=== PATIENT | female | born 1985 ===

== ENCOUNTER 2016-08-01 19:06 | Emergency (ER) | payer MEDICAID ==
--- NOTE | 2016-08-01 19:52 | EDM.PDOC ---
ED HPI GENERAL MEDICAL PROBLEM - General Chief Complaint: Allergic Reaction Stated Complaint: POSSIBLE ALLERGIC REACTION Time Seen by Provider: 08/01/16 19:52 - History of Present Illness INITIAL COMMENTS - FREE TEXT/NARRATIVE: HISTORY AND PHYSICAL: History of present illness: Patient 30-year-old female presents with concern of possible drug reaction she' s recently started on Celexa she states this is caused some nausea and mild headache and seems temporally related to medication she denies any other concern. Review of systems: As per history of present illness and below otherwise all systems reviewed and negative. Past medical history: As per history of present illness and as reviewed below otherwise noncontributory. Surgical history: As per history of present illness and as reviewed below otherwise noncontributory. Social history: No reported history of drug or alcohol abuse. Family history: As per history of present illness and as reviewed below otherwise noncontributory. Physical exam: HEENT: Atraumatic, normocephalic, pupils reactive, negative for conjunctival pallor or scleral icterus, mucous membranes moist, throat clear, neck supple, nontender, trachea midline. Lungs: Clear to auscultation, breath sounds equal bilaterally, chest nontender. Heart: S1S2, regular, negative for clicks, rubs, or JVD. Abdomen: Soft, nondistended, nontender. Negative for masses or hepatosplenomegaly. Negative for costovertebral tenderness. Pelvis: Stable nontender. Genitourinary: Deferred. Rectal: Deferred. Extremities: Atraumatic, negative for cords or calf pain. Neurovascular unremarkable. Neuro: Awake, alert, oriented. Cranial nerves II through XII unremarkable. Cerebellum unremarkable. Motor and sensory unremarkable throughout. Exam nonfocal. Diagnostics: None Therapeutics: None Impression: #1 possible drug reaction Definitive disposition and diagnosis as appropriate pending reevaluation and review of above. 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 (See Below) Other OB/BYN History: high risk , hx of delivery with first child, pt taking progesterone injections Neurological History: Reports: None Psychiatric History: Reports: Depression Endocrine/Metabolic History: Reports: None Hematologic History: Reports: None Oncologic (Cancer) History: Reports: None Dermatologic History: Reports: None - Infectious Disease History Infectious Disease History: Reports: None Social & Family History - Family History Family Medical History: Noncontributory - Tobacco Use Smoking Status *Q: Never Smoker - Recreational Drug Use Recreational Drug Use: Yes Recreational Drug Type: Reports: Marijuana/Hashish, Methamphetamine ED ROS ALLERGIC REACTION - Review of Systems Review Of Systems: ROS reveals no pertinent complaints other than HPI. ED EXAM GENERAL NO PERIP PULSE - Physical Exam Exam: See Below (See dictation) Course - Vital Signs Last Recorded V/S: Last Vital Signs Temp 37.1 C 08/01/16 19:35 Pulse 91 08/01/16 19:35 Resp 18 08/01/16 19:35 BP 118/70 08/01/16 19:35 Pulse Ox 96 08/01/16 19:35 Departure - Departure Time of Disposition: 19:51 Disposition: Home, Self-Care 01 Condition: Good Clinical Impression: Drug reaction, Encounter for medical screening examination - Discharge Information Additional Instructions: The following information is given to patients seen in the emergency department who are being discharged to home. This information is to outline your options for follow-up care. We provide all patients seen in our emergency department with a follow-up referral. The need for follow-up, as well as the timing and circumstances, are variable depending upon the specifics of your emergency department visit. If you don't have a primary care physician on staff, we will provide you with a referral. We always advise you to contact your personal physician following an emergency department visit to inform them of the circumstance of the visit and for follow-up with them and/or the need for any referrals to a consulting specialist. The emergency department will also refer you to a specialist when appropriate. This referral assures that you have the opportunity for followup care with a specialist. All of these measure are taken in an effort to provide you with optimal care, which includes your followup. Under all circumstances we always encourage you to contact your private physician who remains a resource for coordinating your care. When calling for followup care, please make the office aware that this follow-up is from your recent emergency room visit. If for any reason you are refused follow-up, please contact the [facility] emergency department at and asked to speak to the emergency department charge nurse. Follow primary medical doctor 1-2 days stop Celexa as discussed to return as needed as discussed
[2016-08-02 03:01] VITALS: BP 125/71
== END 2016-08-01 20:31 | disposition home or self-care (01) ==
LOC: MW.ED 19:06
DX: R11.0 Nausea (principal); R51 Headache; T43.225A Adverse effect of selective serotonin reuptake inhibitors, initial encounter; Z88.8 Allergy status to other drugs, medicaments and biological substances
CPT/HCPCS: 99282; 99283

== ENCOUNTER 2016-12-02 19:49 | Inpatient (IN) | payer MEDICAID, OTHER ==
[2016-12-02] MEDS ORDERED: Sodium Chloride 0.9% 10 ML Syringe FLUSH PRN (19:58)
[2016-12-02] MEDS ORDERED: Nalbuphine 10 MG/1 ML Vial IVPUSH PRN (19:58)
[2016-12-02] MEDS ORDERED: Water For Irrigation,Sterile 1,000 ML Container IRR PRN (19:58)
[2016-12-02] MEDS ORDERED: Terbutaline 1 MG/ML SDV SUBCUT PRN (19:58)
[2016-12-02] MEDS ORDERED: Misoprostol 200 MCG Tab PO PRN (19:58)
[2016-12-02] MEDS ORDERED: Sodium Chloride 0.9% 2.5 ML Syringe FLUSH PRN (19:58)
[2016-12-02] MEDS ORDERED: Misoprostol 25 MCG (1/4 of 100 MCG) Tab VAG PRN (19:58)
[2016-12-02] MEDS ORDERED: Misoprostol 25 MCG (1/4 of 100 MCG) Tab PO PRN (19:58)
[2016-12-02] MEDS ORDERED: Carboprost Tromethamine 250 MCG/1 ML Amp IM PRN (19:58)
[2016-12-02] MEDS ORDERED: Methylergonovine 0.2 MG/1 ML Amp IM PRN (19:58)
[2016-12-02] MEDS ORDERED: Lidocaine 1% 50 ML MDV INJECT PRN (19:58)
[2016-12-02] MEDS ORDERED: Misoprostol 25 MCG (1/4 of 100 MCG) Tab PO SCH (20:00)
[2016-12-02] MEDS ORDERED: Oxytocin/0.9 % Sodium Chloride 30 UNIT/500 ML BAG IV SCH ×2 (20:00)
[2016-12-02] MEDS ORDERED: Misoprostol 25 MCG (1/4 of 100 MCG) Tab VAG SCH (20:00)
[2016-12-02] MEDS: Lactated Ringers 1,000 ML IV SCH (20:50)
[2016-12-03] MEDS: Butorphanol 1 MG/ML SDV IVPUSH PRN ×2 (01:15→04:11)
[2016-12-03] MEDS: Lactated Ringers 1,000 ML IV SCH ×2 (04:41→05:47)
[2016-12-03] MEDS ORDERED: fentaNYL 100 MCG/2 ML SDV ONE (05:49)
[2016-12-03] MEDS ORDERED: ePHEDrine 50 MG/ML SDV ONE (05:49)
[2016-12-03] MEDS ORDERED: Ropivacaine HCl/PF 100 ML ONE (05:50)
[2016-12-03] MEDS ORDERED: Ropivacaine 0.2% 2 MG/ML 20 ML SDV ONE (05:50)
--- NOTE | 2016-12-03 05:55 | PCM.LDHP ---
L&D History of Present Illness - General Date of Service: 12/03/16 Admit Problem/Dx: Patient Status Order with Admit Dx/Problem 12/02/16 19:58 Patient Status [ADT] Routine Admission Diagnosis/Problem Admission Diagnosis/Problem - planned 12/03/16 05:49 31 yo 40 2/7wks EDC 12/01/2016 A+, RI, GBS neg. IOL for post dates Source of Information: Patient History Limitations: Reports: No Limitations - History of Present Illness Pain Score: 6 Improves with: Reports: None Worsens with: Reports: None Associated Symptoms: Reports: N - Related Data Allergies/Adverse Reactions: Allergies Allergy/AdvReac Type Severity Reaction Status Date / Time citalopram [From Celexa] Allergy Nausea Verified 12/03/16 02:29 hydroxyzine [From Vistaril] Allergy Other Verified 12/03/16 02:28 Home Medications: Home Meds Pnv No.95/Ferrous Fum/Folic AC [ Multivitamin Tablet] 1 each PO DAILY [History] Progesterone Injection 250 mg 08/01/16 [History] buPROPion HCl [Wellbutrin SR] 12/03/16 [History] Past Medical History HEENT History: Reports: Impaired Vision, Other (See Below) Other HEENT History: wears glasses Cardiovascular History: Reports: None Respiratory History: Reports: None Gastrointestinal History: Reports: None Genitourinary History: Reports: None 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: , 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 (See Below) Other OB/BYN History: high risk , hx of delivery with first child, pt taking progesterone injections Neurological History: Reports: None Psychiatric History: Reports: Depression Endocrine/Metabolic History: Reports: None Hematologic History: Reports: None Oncologic (Cancer) History: Reports: None Dermatologic History: Reports: None - Infectious Disease History Infectious Disease History: Reports: None - Past Surgical History HEENT Surgical History: Reports: None Social & Family History - Family History Family Medical History: Noncontributory HEENT: Reports: Cataract, Glaucoma Cardiac: Reports: MT Respiratory: Reports: Asthma GI: Reports: Other (See Below) Other GI Family History: Crohn's disease; ulcers; cholecystitis OBGYN: Reports: Musculoskeletal: Reports: Arthritis Neurological: Reports: CVA Psychiatric: Reports: Anxiety, Depression Endocrine/Metabolic: Reports: Diabetes, Type I, Other (See Below) Other Endocrine/Metabolic Family History: thyroid disease Oncologic: Reports: Breast, Cervix - Tobacco Use Smoking Status *Q: Never Smoker - Recreational Drug Use Recreational Drug Use: Yes Drug Use in Last 12 Months: Yes Recreational Drug Type: Reports: Marijuana/Hashish, Methamphetamine Recreational Drug Use Frequency: Not Used In Over 6 Months Recreational Drug Last Use: 04/2016 H&P Review of Systems - Review of Systems: Review Of Systems: See Below General: Reports: No Symptoms HEENT: Reports: No Symptoms Pulmonary: Reports: No Symptoms Cardiovascular: Reports: No Symptoms Gastrointestinal: Reports: No Symptoms Genitourinary: Reports: No Symptoms Musculoskeletal: Reports: No Symptoms Skin: Reports: No Symptoms Psychiatric: Reports: No Symptoms Neurological: Reports: No Symptoms Hematologic/Lymphatic: Reports: No Symptoms Immunologic: Reports: No Symptoms L&D Exam - Exam Exam: See Below - Vital Signs Weight: 75.296 kg - Exam General: Alert, Oriented, Cooperative, Mild Distress HEENT: Hearing Intact Lungs: Clear to Auscultation, Normal Respiratory Effort Cardiovascular: Regular Rate, Regular Rhythm GI/Abdominal Exam: Soft, Non-Tender, No Organomegaly, No Distention (gravid) Rectal Exam: Deferred Genitourinary: Normal external exam, Cervical dilitation, Cervical fluid Back Exam: Full Range of Motion Extremities: Normal Range of Motion, Non-Tender, No Pedal Edema, Normal Capillary Refill Skin: Warm, Dry, Intact Neurological: Cranial Nerves Intact, Normal Speech, Normal Tone Psychiatric: Alert, Normal Affect, Normal Mood - Patient Data Lab Results Last 24 hrs: Laboratory Results - last 24 hr 12/02/16 12/02/16 Range/Units 20:15 20:15 WBC 13.90 H (4.0-11.0) K/uL RBC 3.49 L (4.30-5.90) M/uL Hgb 12.2 (12.0-16.0) g/dL Hct 33.5 L (36.0-46.0) % MCV 96.0 (80.0-98.0) fL MCH 35.0 H (27.0-32.0) pg MCHC 36.4 (31.0-37.0) g/dL RDW Std Deviation 47.7 (28.0-62.0) fl RDW Coeff of Ricardo 14 (11.0-15.0) % Plt Count 204 (150-400) K/uL MPV 10.20 (7.40-12.00) fL Nucleated RBC % 0.0 /100WBC Nucleated RBCs # 0 K/uL Blood Type A POSITIVE Antibody Screen NEGATIVE Result Diagrams: 12/02/16 20:15 - Problem List (1) Supervision of normal IUP (intrauterine ) in multigravida SNOMED Code(s): 432280952, 462196648 ICD Code: Z34.80 - ENCOUNTER FOR SUPRVSN OF NORMAL , UNSP TRIMESTER Status: Acute Priority: High Current Visit: Yes Qualifiers: Trimester: third trimester Qualified Code(s): Z34.83 - Encounter for supervision of other normal , third trimester Problem List Initiated/Reviewed/Updated: Yes Orders Last 24hrs: Active Orders 24 hr Category Date Time Status Patient Status [ADT] Routine ADT 12/02/16 19:58 Active Bedrest Bathroom Privileges [RC] ASDIRECTED Care 12/02/16 19:58 Active Communication Order [RC] ASDIRECTED Care 12/02/16 19:58 Active Communication Order [RC] ASDIRECTED Care 12/02/16 19:58 Active Communication Order [RC] ASDIRECTED Care 12/02/16 19:58 Active Heart Tones [RC] CONTINUOUS Care 12/02/16 19:58 Active Non Stress Test [RC] PER UNIT ROUTINE Care 12/02/16 19:58 Active May Shower [RC] ASDIRECTED Care 12/02/16 19:58 Active Notify Provider [RC] PRN Care 12/02/16 19:58 Active Notify Provider [RC] PRN Care 12/02/16 19:58 Active Notify Provider [RC] PRN Care 12/02/16 19:58 Active Notify Provider [RC] STAT Care 12/02/16 19:58 Active Oxygen Therapy [RC] ASDIRECTED Care 12/02/16 19:58 Active Up ad Tati [RC] ASDIRECTED Care 12/02/16 19:58 Active Vaginal Exam [RC] PRN Care 12/02/16 19:58 Active Vaginal Exam [RC] PRN Care 12/02/16 19:58 Active Vital Signs [RC] PER UNIT ROUTINE Care 12/02/16 19:58 Active Vital Signs [RC] PER UNIT ROUTINE Care 12/02/16 19:58 Active Butorphanol [Stadol] Med 12/02/16 19:58 Active 1 mg IVPUSH Q1H PRN Carboprost Tromethamine [Hemabate DS] Med 12/02/16 19:58 Active 250 mcg IM ASDIRECTED PRN Lactated Ringers [Ringers, Lactated] 1,000 ml Med 12/02/16 20:00 Active IV ASDIRECTED Lidocaine 1% [Xylocaine 1%] Med 12/02/16 19:58 Active 50 ml INJECT .ONCE PRN Methylergonovine [Methergine] Med 12/02/16 19:58 Active 0.2 mg IM ASDIRECTED PRN Misoprostol [Cytotec] Med 12/02/16 19:58 Active 200 mcg PO .ONCE PRN Misoprostol [Cytotec] Med 12/02/16 20:00 Active 25 mcg PO .ONCE Misoprostol [Cytotec] Med 12/02/16 19:58 Active 25 mcg PO Q4H PRN Misoprostol [Cytotec] Med 12/02/16 20:00 Active 25 mcg VAG .ONCE Misoprostol [Cytotec] Med 12/02/16 19:58 Active 25 mcg VAG Q4H PRN Nalbuphine [Nubain] Med 12/02/16 19:58 Active 10 mg IVPUSH Q1H PRN Oxytocin/0.9 % Sodium Chloride [Oxytocin 30 Unit/500 ML Med 12/02/16 20:00 Active -NS] 30 unit in 500 ml IV TITRATE Oxytocin/0.9 % Sodium Chloride [Oxytocin 30 Unit/500 ML Med 12/02/16 20:00 Active -NS] 30 unit in 500 ml IV TITRATE Sodium Chloride 0.9% [Saline Flush] Med 12/02/16 19:58 Active 10 ml FLUSH ASDIRECTED PRN Sodium Chloride 0.9% [Saline Flush] Med 12/02/16 19:58 Active 2.5 ml FLUSH ASDIRECTED PRN Terbutaline [Brethine] Med 12/02/16 19:58 Active 0.25 mg SUBCUT ASDIRECTED PRN Water For Irrigation,Sterile [Sterile Water for Med 12/02/16 19:58 Active Irrigation] 1,000 ml IRR ASDIRECTED PRN Scalp Electrode [WOMSER] Per Unit Routine Oth 12/02/16 19:58 Ordered Medication Administration Instruction [OM.PC] Q3H Oth 12/02/16 20:00 Ordered Peripheral IV Insertion Adult [OM.PC] Routine Oth 12/02/16 19:58 Ordered Resuscitation Status Routine Resus Stat 12/02/16 19:58 Ordered Medication Orders Butorphanol Tartrate (Stadol) 1 mg IVPUSH Q1H PRN PRN Reason: Pain Last Admin: 12/03/16 04:11 Dose: 1 mg Admin: 12/03/16 01:15 Dose: 1 mg Carboprost Tromethamine (Hemabate Ds) 250 mcg IM ASDIRECTED PRN PRN Reason: Post Hemorrhage Lactated Ringer's (Ringers, Lactated) 1,000 mls @ 150 mls/hr IV ASDIRECTED HU Last Admin: 12/03/16 05:47 Dose: 999 mls/hr Infusion: 12/03/16 05:47 Dose: 150 mls/hr Admin: 12/03/16 04:41 Dose: 150 mls/hr Infusion: 12/03/16 03:31 Dose: 150 mls/hr Admin: 12/02/16 20:50 Dose: 150 mls/hr Oxytocin/Sodium Chloride (Oxytocin 30 Unit/500 Ml-Ns) 30 unit in 500 mls @ 500 mls/hr IV TITRATE HU Oxytocin/Sodium Chloride (Oxytocin 30 Unit/500 Ml-Ns) 30 unit in 500 mls @ 2 mls/hr IV TITRATE HU; 2 MUNITS/MIN PRN Reason: Protocol Last Titration: 12/03/16 04:33 Dose: 0 munits/min, 0 mls/hr Admin: 12/03/16 02:55 Dose: 2 munits/min, 2 mls/hr Lidocaine HCl (Xylocaine 1%) 50 ml INJECT .ONCE PRN PRN Reason: Laceration repair Methylergonovine Maleate (Methergine) 0.2 mg IM ASDIRECTED PRN PRN Reason: Post Hemorrhage Misoprostol (Cytotec) 200 mcg PO .ONCE PRN PRN Reason: Post Hemorrhage Misoprostol (Cytotec) 25 mcg VAG .ONCE HU Last Admin: 12/02/16 20:53 Dose: 25 mcg Misoprostol (Cytotec) 25 mcg VAG Q4H PRN PRN Reason: Cervical Ripening Misoprostol (Cytotec) 25 mcg PO .ONCE HU Last Admin: 12/02/16 20:53 Dose: 25 mcg Misoprostol (Cytotec) 25 mcg PO Q4H PRN PRN Reason: Cervical Ripening Nalbuphine HCl (Nubain) 10 mg IVPUSH Q1H PRN PRN Reason: Pain (severe 7-10) Sodium Chloride (Saline Flush) 10 ml FLUSH ASDIRECTED PRN PRN Reason: Keep Vein Open Sodium Chloride (Saline Flush) 2.5 ml FLUSH ASDIRECTED PRN PRN Reason: Keep Vein Open Sterile Water (Sterile Water For Irrigation) 1,000 ml IRR ASDIRECTED PRN PRN Reason: delivery Terbutaline Sulfate (Brethine) 0.25 mg SUBCUT ASDIRECTED PRN PRN Reason: Tacysystole Assessment/Plan Comment:: IOL A: 31 yo 40 2/7wks EDC 12/01/2016 A+, RI, GBS neg. IOL for post dates P: Admit to L&D, cytotec per protocol to pitocin, epidural prn, anticipate
--- NOTE | 2016-12-03 06:31 | PCM.PRNOTE ---
- Free Text/Narrative Note: Called for a labor epidural for patient c/o labor pain. Patient identified and history reviewed. Discussed procedure and risks including bleeding, infection, nerve pain, nerve damage and unsuccessful epidural. Patient agrees. Sitting up, sterile betadine prep times 3 and sterile drape. 1% lidocaine SQ at L4 #25 Touhy advanced os x 1 on left, needle redirected MIRA, Touhy advanced MIRA saline to approximately 7 cm. Catheter easily advanced to 12 cm. No heme no paresthesia. Test dose 3 ml 1.5% lidocaine with epinephrine 1:200,000. negative reaction. Bolus of fentanyl 100 mcg given with 4 ml 0.2% ropivicaine. ropivicaine bolus x1 of 2ml. Total 6 ml bolus.Patient reports pain relief after 2 contractions. Level noted to be T10 pt feeling alot of pressure cervical exam shows dilation to 9 cm. Epidural drip of 0.2% ropivicaine and Fentanyl 2 mcg/ml started at 8 ml/hr PCEA bolus of 4 ml every 20 minutes. Pt tolerated well.
--- NOTE | 2016-12-03 06:33 | PCM.PREANE ---
Preanesthetic Assessment - Anesthesia/Transfusion/Family Hx Anesthesia History: Prior Anesthesia Without Reaction (bladder surgery) Family History of Anesthesia Reaction: No Transfusion History: No Prior Transfusion(s) - Review of Systems General: No Symptoms Pulmonary: No Symptoms Cardiovascular: No Symptoms Gastrointestinal: No Symptoms Neurological: No Symptoms Other: Reports: None - Physical Assessment Pulse: 102 Blood Pressure: 134/72 Height: 1.68 m Weight: 75.296 kg ASA Class: 2 Mental Status: Alert & Oriented x3 Airway Class: Mallampati = 2 Dentition: Reports: Normal Dentition Thyro-Mental Finger Breadths: 3 ROM/Head Extension: Full Lungs: Clear to Auscultation, Normal Respiratory Effort Cardiovascular: Regular Rate, Regular Rhythm - Lab Values: Laboratory Last Values WBC 13.90 K/uL (4.0-11.0) H 12/02/16 20:15 RBC 3.49 M/uL (4.30-5.90) L 12/02/16 20:15 Hgb 12.2 g/dL (12.0-16.0) 12/02/16 20:15 Hct 33.5 % (36.0-46.0) L 12/02/16 20:15 MCV 96.0 fL (80.0-98.0) 12/02/16 20:15 MCH 35.0 pg (27.0-32.0) H 12/02/16 20:15 MCHC 36.4 g/dL (31.0-37.0) 12/02/16 20:15 RDW Std Deviation 47.7 fl (28.0-62.0) 12/02/16 20:15 RDW Coeff of Ricardo 14 % (11.0-15.0) 12/02/16 20:15 Plt Count 204 K/uL (150-400) 12/02/16 20:15 MPV 10.20 fL (7.40-12.00) 12/02/16 20:15 Nucleated RBC % 0.0 /100WBC 12/02/16 20:15 Nucleated RBCs # 0 K/uL 12/02/16 20:15 Blood Type A POSITIVE 12/02/16 20:15 Antibody Screen NEGATIVE 12/02/16 20:15 - Allergies Allergies/Adverse Reactions: Allergies Allergy/AdvReac Type Severity Reaction Status Date / Time citalopram [From Celexa] Allergy Nausea Verified 12/03/16 02:29 hydroxyzine [From Vistaril] Allergy Other Verified 12/03/16 02:28 - Blood Blood Available: Yes Product(s) Available: PRBC - Anesthesia Plan Pre-Op Medication Ordered: None - Acknowledgements Anesthesia Type Planned: Epidural Pt an Appropriate Candidate for the Planned Anesthesia: Yes Alternatives and Risks of Anesthesia Discussed w Pt/Guardian: Yes Pt/Guardian Understands and Agrees with Anesthesia Plan: Yes PreAnesthesia Questionnaire HEENT History: Reports: Impaired Vision, Other (See Below) Other HEENT History: wears glasses Cardiovascular History: Reports: None Respiratory History: Reports: None Gastrointestinal History: Reports: None Genitourinary History: Reports: None 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: , 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 (See Below) Other OB/BYN History: high risk , hx of delivery with first child, pt taking progesterone injections Neurological History: Reports: None Psychiatric History: Reports: Depression Endocrine/Metabolic History: Reports: None Hematologic History: Reports: None Oncologic (Cancer) History: Reports: None Dermatologic History: Reports: None - Infectious Disease History Infectious Disease History: Reports: None - Past Surgical History HEENT Surgical History: Reports: None - SUBSTANCE USE Smoking Status *Q: Never Smoker Recreational Drug Use History: Yes Recreational Drug Type: Reports: Marijuana/Hashish, Methamphetamine Recreational Drug Last Use: 04/2016 - HOME MEDS Home Medications: Home Meds Pnv No.95/Ferrous Fum/Folic AC [ Multivitamin Tablet] 1 each PO DAILY [History] Progesterone Injection 250 mg 08/01/16 [History] buPROPion HCl [Wellbutrin SR] 12/03/16 [History] - CURRENT (IN HOUSE) MEDS Current Meds: Current Medications Butorphanol Tartrate (Stadol) 1 mg IVPUSH Q1H PRN PRN Reason: Pain Last Admin: 12/03/16 04:11 Dose: 1 mg Carboprost Tromethamine (Hemabate Ds) 250 mcg IM ASDIRECTED PRN PRN Reason: Post Hemorrhage Lactated Ringer's (Ringers, Lactated) 1,000 mls @ 150 mls/hr IV ASDIRECTED HU Last Admin: 12/03/16 05:47 Dose: 999 mls/hr Oxytocin/Sodium Chloride (Oxytocin 30 Unit/500 Ml-Ns) 30 unit in 500 mls @ 500 mls/hr IV TITRATE HU Oxytocin/Sodium Chloride (Oxytocin 30 Unit/500 Ml-Ns) 30 unit in 500 mls @ 2 mls/hr IV TITRATE HU; 2 MUNITS/MIN PRN Reason: Protocol Last Titration: 12/03/16 04:33 Dose: 0 munits/min, 0 mls/hr Lidocaine HCl (Xylocaine 1%) 50 ml INJECT .ONCE PRN PRN Reason: Laceration repair Methylergonovine Maleate (Methergine) 0.2 mg IM ASDIRECTED PRN PRN Reason: Post Hemorrhage Misoprostol (Cytotec) 200 mcg PO .ONCE PRN PRN Reason: Post Hemorrhage Misoprostol (Cytotec) 25 mcg VAG .ONCE HU Last Admin: 12/02/16 20:53 Dose: 25 mcg Misoprostol (Cytotec) 25 mcg VAG Q4H PRN PRN Reason: Cervical Ripening Misoprostol (Cytotec) 25 mcg PO .ONCE HU Last Admin: 12/02/16 20:53 Dose: 25 mcg Misoprostol (Cytotec) 25 mcg PO Q4H PRN PRN Reason: Cervical Ripening Nalbuphine HCl (Nubain) 10 mg IVPUSH Q1H PRN PRN Reason: Pain (severe 7-10) Sodium Chloride (Saline Flush) 10 ml FLUSH ASDIRECTED PRN PRN Reason: Keep Vein Open Sodium Chloride (Saline Flush) 2.5 ml FLUSH ASDIRECTED PRN PRN Reason: Keep Vein Open Sterile Water (Sterile Water For Irrigation) 1,000 ml IRR ASDIRECTED PRN PRN Reason: delivery Terbutaline Sulfate (Brethine) 0.25 mg SUBCUT ASDIRECTED PRN PRN Reason: Tacysystole Discontinued Medications Ephedrine Sulfate (Ephedrine Sulfate) Confirm Administered Dose 50 mg .ROUTE .STK-MED ONE Stop: 12/03/16 05:50 Fentanyl (Sublimaze) Confirm Administered Dose 300 mcg .ROUTE .STK-MED ONE Stop: 12/03/16 05:50 Ropivacaine (Naropin 0.2%) Confirm Administered Dose 100 mls @ as directed .ROUTE .STK-MED ONE Stop: 12/03/16 05:51 Ropivacaine (Naropin 0.2%) Confirm Administered Dose 20 ml .ROUTE .ScholarPRO-MED ONE Stop: 12/03/16 05:51
[2016-12-03] MEDS ORDERED: Acetaminophen 500 MG Tab PO PRN (09:40)
[2016-12-03] MEDS ORDERED: Benzocaine/Menthol 20%-0.5% Spray 78 GM Cannister TOP PRN (09:40)
[2016-12-03] MEDS ORDERED: Ibuprofen 400 MG Tab PO PRN (09:40)
[2016-12-03] MEDS ORDERED: Docusate Sodium 100 MG Cap PO PRN (09:40)
[2016-12-03] MEDS ORDERED: Lanolin 100% Cream 7 GM Tube TOP PRN (09:40)
[2016-12-03] MEDS ORDERED: Witch Hazel Medicated Pads 40/Jar TOP PRN (09:40)
[2016-12-03] MEDS ORDERED: Bisacodyl 10 MG Supp RECTAL PRN (09:40)
--- NOTE | 2016-12-03 10:02 | OR ---
SURGEON: Roverto Khan MD DATE OF PROCEDURE: DELIVERY NOTE: Ms. Carranza, age 31, she is para 0-1-0-1. She is followed in the clinic in this , primarily seen by me. Prenatally, she was placed on progesterone injection because of history of premature labor. Other than that, she had no complication. She was admitted for induction at 39+ weeks for social reason. The patient responded to the induction, and she progressed without any problem. heart rate was category 1 through the entire process of labor. The patient became complete, complete, and she had epidural anesthesia for labor analgesia, and she started pushing. She pushed in excess of 2 hours. The heart rate started to be tachycardia. I was consulted. At the time of examination, vital signs were stable, heart rate was category 1, and upon my examination, the patient is complete, complete, +2, a significant part of the head is visible when the patient pushed. However, the examination indicated that the patient is occiput posterior. So, after consulting with the patient and presenting her with the option, we elected to do a Kiwi vacuum extraction and that was applied without any problem. With the patient pushing, I was able to guide the head to deliver, and the rest of the fetus was delivered by Arianne Pichardo, nurse compress trucker, who was attending and managing the patient through the entire process of labor. The fetus cried immediately without any problem. There was no laceration, and there was no episiotomy needed. Estimated blood loss was 250 to 300 mL in this . There was no complication. ASHELY / MARILYN /[id number]
[2016-12-03] MEDS: Ibuprofen 800 MG Tab PO PRN ×2 (13:17→18:01)
--- NOTE | 2016-12-03 14:33 | PCM48HPAN ---
Post Anesthesia Note - EVALUATION WITHIN 48HRS OF ANESTHETIC Vital Signs in Normal Range: Yes Patient Participated in Evaluation: Yes Respiratory Function Stable: Yes Airway Patent: Yes Cardiovascular Function Stable: Yes Hydration Status Stable: Yes Pain Control Satisfactory: Yes Nausea and Vomiting Control Satisfactory: Yes Mental Status Recovered: Yes - COMMENTS/OBSERVATIONS Free Text/Narrative:: delivered at 0900. no problems today. legs still slightly numb
[2016-12-03] MEDS: oxyCODONE 5 MG Tab PO PRN (23:55)
--- NOTE | 2016-12-04 07:40 | PCM.SN ---
- Free Text/Narrative Note: saw patient for continued complaints of leg numbness. Patient states numbness on right leg from knee to top of foot medial side, and Left leg from mid thigh to top of foot on lateral side. pt has good strength flexion and extension both feet. pt states her knee gives out on left leg with ambulating. discussed with Dr. Howard who will follow up.
--- NOTE | 2016-12-04 08:06 | PCM.DCSUM1 ---
Discharge Summary - Hospital Course Free Text/Narrative:: Discharge home with infant. Follow up 6 weeks or sooner if needed for post visit. - Discharge Data Discharge Date: 12/04/16 Discharge Disposition: Home, Self-Care 01 Condition: Good - Discharge Diagnosis/Problem(s) (1) Supervision of normal IUP (intrauterine ) in multigravida SNOMED Code(s): 382497091, [id number] ICD Code: Z34.80 - ENCOUNTER FOR SUPRVSN OF NORMAL , UNSP TRIMESTER Status: Acute Priority: High Current Visit: Yes Qualifiers: Trimester: third trimester Qualified Code(s): Z34.83 - Encounter for supervision of other normal , third trimester - Patient Instructions Diet: Usual Diet as Tolerated Activity: As Tolerated, Rest and Relax Today Driving: May Drive Today Showering/Bathing: May Shower Notify Provider of: Fever, Increased Pain, Swelling and Redness, Nausea and/or Vomiting Other/Special Instructions: Discharge home with . Follow up 6 weeks or sooner if needed for post visit. - Discharge Plan Home Medications: Home Meds Pnv No.95/Ferrous Fum/Folic AC [ Multivitamin Tablet] 1 each PO DAILY [History] Progesterone Injection 250 mg 08/01/16 [History] buPROPion HCl [Wellbutrin SR] 12/03/16 [History] - General Info Date of Service: 12/04/16 Admission Dx/Problem (Free Text: Patient Status Order with Admit Dx/Problem 12/02/16 19:58 Patient Status [ADT] Routine Admission Diagnosis/Problem Admission Diagnosis/Problem - planned 12/03/16 05:49 31 yo 40 2/7wks EDC 12/01/2016 A+, RI, GBS neg. IOL for post dates Functional Status: Reports: Pain Controlled, Tolerating Diet, Ambulating ( continued numbness in lower legs.), Urinating - Review of Systems General: Reports: No Symptoms HEENT: Reports: No Symptoms Pulmonary: Reports: No Symptoms Cardiovascular: Reports: No Symptoms Gastrointestinal: Reports: No Symptoms Genitourinary: Reports: No Symptoms Musculoskeletal: Reports: No Symptoms Skin: Reports: No Symptoms Neurological: Reports: No Symptoms Psychiatric: Reports: No Symptoms - Patient Data Vitals - Most Recent: Last Vital Signs Temp 36.2 C 12/03/16 20:30 Pulse 97 12/03/16 20:30 Resp 16 12/03/16 20:30 BP 119/84 12/03/16 20:30 Pulse Ox 95 12/03/16 20:30 Weight - Most Recent: 75.296 kg Med Orders - Current: Current Medications Acetaminophen (Tylenol Extra Strength) 500 mg PO Q4H PRN PRN Reason: Pain Acetaminophen (Tylenol Extra Strength) 1,000 mg PO Q4H PRN PRN Reason: Pain Benzocaine/Menthol (Dermoplast Pain Relief 20%-0.5% [place]) 78 gm TOP ASDIRECTED PRN PRN Reason: Perineal Comfort Measure Last Admin: 12/03/16 13:22 Dose: 1 canister Bisacodyl (Dulcolax) 10 mg RECTAL .ONCE PRN PRN Reason: Constipation Docusate Sodium (Colace) 100 mg PO BID PRN PRN Reason: Constipation Emollient Ointment (Lansinoh Hpa) 0 gm TOP ASDIRECTED PRN PRN Reason: Sore Nipples Last Admin: 12/03/16 11:33 Dose: 1 applicful Ibuprofen (Motrin) 400 mg PO Q4H PRN PRN Reason: Pain Ibuprofen (Motrin) 800 mg PO Q6H PRN PRN Reason: Pain Last Admin: 12/03/16 18:01 Dose: 800 mg Oxycodone HCl (Oxycodone) 5 mg PO Q2H PRN PRN Reason: Pain Last Admin: 12/03/16 23:55 Dose: 5 mg Witch Mariaelena (Tucks) 1 pad TOP ASDIRECTED PRN PRN Reason: comfort care Last Admin: 12/03/16 13:22 Dose: 1 tub Discontinued Medications Butorphanol Tartrate (Stadol) 1 mg IVPUSH Q1H PRN PRN Reason: Pain Last Admin: 12/03/16 04:11 Dose: 1 mg Carboprost Tromethamine (Hemabate Ds) 250 mcg IM ASDIRECTED PRN PRN Reason: Post Hemorrhage Ephedrine Sulfate (Ephedrine Sulfate) Confirm Administered Dose 50 mg .ROUTE .STK-MED ONE Stop: 12/03/16 05:50 Last Admin: 12/03/16 13:49 Dose: Not Given Fentanyl (Sublimaze) Confirm Administered Dose 300 mcg .ROUTE .STK-MED ONE Stop: 12/03/16 05:50 Last Admin: 12/03/16 13:49 Dose: Not Given Lactated Ringer's (Ringers, Lactated) 1,000 mls @ 150 mls/hr IV ASDIRECTED HU Last Admin: 12/03/16 05:47 Dose: 999 mls/hr Oxytocin/Sodium Chloride (Oxytocin 30 Unit/500 Ml-Ns) 30 unit in 500 mls @ 500 mls/hr IV TITRATE HU Oxytocin/Sodium Chloride (Oxytocin 30 Unit/500 Ml-Ns) 30 unit in 500 mls @ 2 mls/hr IV TITRATE HU; 2 MUNITS/MIN PRN Reason: Protocol Last Titration: 12/03/16 09:20 Dose: 500 munits/min, 500 mls/hr Ropivacaine (Naropin 0.2%) Confirm Administered Dose 100 mls @ as directed .ROUTE .[place] ONE Stop: 12/03/16 05:51 Last Admin: 12/03/16 13:49 Dose: Not Given Lidocaine HCl (Xylocaine 1%) 50 ml INJECT .ONCE PRN PRN Reason: Laceration repair Methylergonovine Maleate (Methergine) 0.2 mg IM ASDIRECTED PRN PRN Reason: Post Hemorrhage Misoprostol (Cytotec) 200 mcg PO .ONCE PRN PRN Reason: Post Hemorrhage Misoprostol (Cytotec) 25 mcg VAG .ONCE HU Last Admin: 12/02/16 20:53 Dose: 25 mcg Misoprostol (Cytotec) 25 mcg VAG Q4H PRN PRN Reason: Cervical Ripening Misoprostol (Cytotec) 25 mcg PO .ONCE HU Last Admin: 12/02/16 20:53 Dose: 25 mcg Misoprostol (Cytotec) 25 mcg PO Q4H PRN PRN Reason: Cervical Ripening Nalbuphine HCl (Nubain) 10 mg IVPUSH Q1H PRN PRN Reason: Pain (severe 7-10) Ropivacaine (Naropin 0.2%) Confirm Administered Dose 20 ml .ROUTE .[place] ONE Stop: 12/03/16 05:51 Last Admin: 12/03/16 13:49 Dose: Not Given Sodium Chloride (Saline Flush) 10 ml FLUSH ASDIRECTED PRN PRN Reason: Keep Vein Open Sodium Chloride (Saline Flush) 2.5 ml FLUSH ASDIRECTED PRN PRN Reason: Keep Vein Open Sterile Water (Sterile Water For Irrigation) 1,000 ml IRR ASDIRECTED PRN PRN Reason: delivery Terbutaline Sulfate (Brethine) 0.25 mg SUBCUT ASDIRECTED PRN PRN Reason: Tacysystole - Exam General: Reports: Alert, Oriented, Cooperative, No Acute Distress Lungs: Reports: Normal Respiratory Effort GI/Abdominal Exam: Soft, Non-Tender (Female) Exam: Vaginal Bleeding Rectal (Female) Exam: Deferred Back Exam: Reports: Full Range of Motion Extremities: Normal Inspection, Non-Tender, No Pedal Edema, Normal Capillary Refill, Other (continued numbness in lower legs, good sensation with touch.) Skin: Reports: Warm, Dry, Intact Neurological: Reports: No New Focal Deficit, Normal Speech, Normal Tone Psy/Mental Status: Reports: Alert *Q Meaningful Use (DIS) - VTE *Q VTE Criteria *Q: - Stroke *Q Stroke Criteria *Q: - AMI *Q AMI Criteria *Q:
[2016-12-04] MEDS: Acetaminophen 500 MG Tab PO PRN ×2 (11:46→19:52)
[2016-12-04] MEDS: oxyCODONE 5 MG Tab PO PRN ×4 (11:46→22:41)
[2016-12-04] MEDS: Ibuprofen 800 MG Tab PO PRN (17:18)
[2016-12-05] MEDS: Ibuprofen 800 MG Tab PO PRN ×2 (03:17→11:31)
[2016-12-05 03:43] VITALS: BP 114/67
[2016-12-05] MEDS: oxyCODONE 5 MG Tab PO PRN ×3 (08:19→15:43)
[2016-12-05] MEDS: Acetaminophen 500 MG Tab PO PRN ×2 (08:20→15:42)
--- NOTE | 2016-12-05 09:27 | PCM.PNPP ---
- General Info Date of Service: 12/05/16 Functional Status: Reports: Pain Controlled - Review of Systems General: Reports: No Symptoms HEENT: Reports: No Symptoms Pulmonary: Reports: No Symptoms Cardiovascular: Reports: No Symptoms Gastrointestinal: Reports: No Symptoms Genitourinary: Reports: No Symptoms Musculoskeletal: Reports: No Symptoms Skin: Reports: No Symptoms Neurological: Reports: No Symptoms Psychiatric: Reports: No Symptoms - General Info Date of Service: 12/05/16 - Patient Data Vital Signs - Most Recent: Last Vital Signs Temp 36.4 C 12/05/16 03:32 Pulse 81 12/05/16 03:32 Resp 15 12/05/16 03:32 BP 114/67 12/05/16 03:32 Pulse Ox 100 12/05/16 03:32 Weight - Most Recent: 75.296 kg I&O - Last 24 Hours: Intake & Output 12/04/16 12/05/16 12/05/16 22:59 06:59 14:59 Output Total 300 400 Balance -300 -400 Med Orders - Current: Current Medications Acetaminophen (Tylenol Extra Strength) 500 mg PO Q4H PRN PRN Reason: Pain Last Admin: 12/05/16 08:20 Dose: 500 mg Acetaminophen (Tylenol Extra Strength) 1,000 mg PO Q4H PRN PRN Reason: Pain Benzocaine/Menthol (Dermoplast Pain Relief 20%-0.5% [place]) 78 gm TOP ASDIRECTED PRN PRN Reason: Perineal Comfort Measure Last Admin: 12/03/16 13:22 Dose: 1 canister Bisacodyl (Dulcolax) 10 mg RECTAL .ONCE PRN PRN Reason: Constipation Docusate Sodium (Colace) 100 mg PO BID PRN PRN Reason: Constipation Last Admin: 12/05/16 08:20 Dose: 100 mg Emollient Ointment (Lansinoh Hpa) 0 gm TOP ASDIRECTED PRN PRN Reason: Sore Nipples Last Admin: 12/03/16 11:33 Dose: 1 applicful Ibuprofen (Motrin) 400 mg PO Q4H PRN PRN Reason: Pain Ibuprofen (Motrin) 800 mg PO Q6H PRN PRN Reason: Pain Last Admin: 12/05/16 03:17 Dose: 800 mg Oxycodone HCl (Oxycodone) 5 mg PO Q2H PRN PRN Reason: Pain Last Admin: 12/05/16 08:19 Dose: 5 mg Witch Mariaelena (Tucks) 1 pad TOP ASDIRECTED PRN PRN Reason: comfort care Last Admin: 12/03/16 13:22 Dose: 1 tub Discontinued Medications Butorphanol Tartrate (Stadol) 1 mg IVPUSH Q1H PRN PRN Reason: Pain Last Admin: 12/03/16 04:11 Dose: 1 mg Carboprost Tromethamine (Hemabate Ds) 250 mcg IM ASDIRECTED PRN PRN Reason: Post Hemorrhage Ephedrine Sulfate (Ephedrine Sulfate) Confirm Administered Dose 50 mg .ROUTE .STK-MED ONE Stop: 12/03/16 05:50 Last Admin: 12/03/16 13:49 Dose: Not Given Fentanyl (Sublimaze) Confirm Administered Dose 300 mcg .ROUTE .STK-MED ONE Stop: 12/03/16 05:50 Last Admin: 12/03/16 13:49 Dose: Not Given Lactated Ringer's (Ringers, Lactated) 1,000 mls @ 150 mls/hr IV ASDIRECTED HU Last Admin: 12/03/16 05:47 Dose: 999 mls/hr Oxytocin/Sodium Chloride (Oxytocin 30 Unit/500 Ml-Ns) 30 unit in 500 mls @ 500 mls/hr IV TITRATE HU Oxytocin/Sodium Chloride (Oxytocin 30 Unit/500 Ml-Ns) 30 unit in 500 mls @ 2 mls/hr IV TITRATE HU; 2 MUNITS/MIN PRN Reason: Protocol Last Titration: 12/03/16 09:20 Dose: 500 munits/min, 500 mls/hr Ropivacaine (Naropin 0.2%) Confirm Administered Dose 100 mls @ as directed .ROUTE .STK-MED ONE Stop: 12/03/16 05:51 Last Admin: 12/03/16 13:49 Dose: Not Given Lidocaine HCl (Xylocaine 1%) 50 ml INJECT .ONCE PRN PRN Reason: Laceration repair Methylergonovine Maleate (Methergine) 0.2 mg IM ASDIRECTED PRN PRN Reason: Post Hemorrhage Misoprostol (Cytotec) 200 mcg PO .ONCE PRN PRN Reason: Post Hemorrhage Misoprostol (Cytotec) 25 mcg VAG .ONCE HU Last Admin: 12/02/16 20:53 Dose: 25 mcg Misoprostol (Cytotec) 25 mcg VAG Q4H PRN PRN Reason: Cervical Ripening Misoprostol (Cytotec) 25 mcg PO .ONCE HU Last Admin: 12/02/16 20:53 Dose: 25 mcg Misoprostol (Cytotec) 25 mcg PO Q4H PRN PRN Reason: Cervical Ripening Nalbuphine HCl (Nubain) 10 mg IVPUSH Q1H PRN PRN Reason: Pain (severe 7-10) Ropivacaine (Naropin 0.2%) Confirm Administered Dose 20 ml .ROUTE .[employer] ONE Stop: 12/03/16 05:51 Last Admin: 12/03/16 13:49 Dose: Not Given Sodium Chloride (Saline Flush) 10 ml FLUSH ASDIRECTED PRN PRN Reason: Keep Vein Open Sodium Chloride (Saline Flush) 2.5 ml FLUSH ASDIRECTED PRN PRN Reason: Keep Vein Open Sterile Water (Sterile Water For Irrigation) 1,000 ml IRR ASDIRECTED PRN PRN Reason: delivery Terbutaline Sulfate (Brethine) 0.25 mg SUBCUT ASDIRECTED PRN PRN Reason: Tacysystole - Infant Interaction Disposition, : [place] in Room with Family Interaction: Holding Infant Feeding: Bottle Fed Infant Support Person: Mother, Friend - Recovery Exam Fundal Tone: Firm Fundal Level: 1 Fingerbreadths Below Umbilicus Fundal Placement: Midline Lochia Amount: Scant Lochia Color: Rubra/Red Perineum Description: Intact, Minimal Bruising/Swelling Other Perinuem Description: 1st degree laceration Episiotomy/Laceration: Approximated Bladder Status: Voiding Urinary Elimination: Other (see below) Other Urinary Elimination, : Bed landry due to fractured ankle - Exam General: Alert, Oriented HEENT: Pupils Equal Neck: Supple Lungs: Clear to Auscultation, Normal Respiratory Effort Cardiovascular: Regular Rate, Regular Rhythm GI/Abdominal Exam: Normal Bowel Sounds, Soft, Non-Tender, No Organomegaly, No Distention, No Abnormal Bruit, No Mass, Pelvis Stable Extremities: Normal Inspection, Normal Range of Motion, Non-Tender, No Pedal Edema, Normal Capillary Refill Skin: Warm, Dry, Intact Wound/Incisions: Healing Well Neurological: No New Focal Deficit Psy/Mental Status: Alert, Normal Affect, Normal Mood - Problem List Review Problem List Initiated/Reviewed/Updated: Yes - My Orders Last 24 Hours: My Active Orders 12/04/16 17:24 Ankle Min 3V Rt [CR] Urgent 12/04/16 20:22 Consult to Physician [CONS] Routine 12/04/16 20:24 Notify Provider Consults [RC] ASDIRECTED Splinting [RC] ASDIRECTED - Assessment Assessment:: Patient fell yesterday while she is walking to the bathroom she was complaining of right ankle pain x-ray of the right ankle shows non-displaced fracture of the distal end of the fibula. Will consult today with orthopedic service for recommendation and probably will discharge the patient later on this afternoon - Plan Plan:: IOL A: 31 yo 40 2/7wks EDC 12/01/2016 A+, RI, GBS neg. IOL for post dates P: Admit to L&D, cytotec per protocol to pitocin, epidural prn, anticipate
--- NOTE | 2016-12-05 11:20 | CR ---
EXAM DATE: 12/03/16 PATIENT'S AGE: 31 Patient: LEENA ALEGRIA Facility: [place], [place] Site . Site : 1985 Study: XRay Extremity Right ankle [id number] 5:55:33 PM Ordering Physician: Bill Layne Final Report: INDICATION: Fell, twisted right ankle. TECHNIQUE: Ankle radiograph 3 views COMPARISON: None FINDINGS: Oblique fracture at distal right fibula at approximately level of ankle joint. Adjacent soft tissue swelling. Medial malleolus and posterior malleolus intact. No additional fracture identified. Ankle mortise congruent. Talar dome and 5th metatarsal base intact. IMPRESSION: 1. Oblique distal right fibular fracture with adjacent soft tissue swelling. Dictated by Nikolas Hernández MD @ 12/04/2016 6:37:26 PM Dictated by: Nikolas Hernández MD @ 12/04/2016 18:37:30 (Electronic Signature) Report Signed by Proxy. [facility] HOSPITALAndrew
--- NOTE | 2016-12-05 13:09 | PCM.DCSUM1 ---
Discharge Summary - Discharge Data Discharge Date: 12/05/16 Discharge Disposition: Home, Self-Care 01 Condition: Good - Patient Summary/Data Consults: Consultations 12/04/16 20:22 Consult to Physician [CONS] Routine - Patient Instructions Diet: Usual Diet as Tolerated Activity: As Tolerated, Rest and Relax Today Driving: May Drive Today Showering/Bathing: May Shower Notify Provider of: Fever, Increased Pain, Swelling and Redness, Nausea and/or Vomiting Other/Special Instructions: Discharge home with infant. Follow up 6 weeks or sooner if needed for post visit. - Discharge Plan Home Medications: Home Meds Pnv No.95/Ferrous Fum/Folic AC [ Multivitamin Tablet] 1 each PO DAILY [History] Progesterone Injection 250 mg 08/01/16 [History] buPROPion HCl [Wellbutrin SR] 12/03/16 [History] Patient Handouts: Home Care Instructions for Mom, Vaginal Delivery, Care After Referrals: [facility] [Outside] Roverto Khan MD [Physician] - 01/15/17 9:30 am - General Info Date of Service: 12/05/16 Functional Status: Reports: Pain Controlled - Review of Systems General: Reports: No Symptoms HEENT: Reports: No Symptoms Pulmonary: Reports: No Symptoms Cardiovascular: Reports: No Symptoms Gastrointestinal: Reports: No Symptoms Genitourinary: Reports: No Symptoms Musculoskeletal: Reports: No Symptoms Skin: Reports: No Symptoms Neurological: Reports: No Symptoms Psychiatric: Reports: No Symptoms - Patient Data Vitals - Most Recent: Last Vital Signs Temp 36.7 C 12/05/16 08:30 Pulse 92 12/05/16 08:30 Resp 14 12/05/16 08:30 BP 114/67 12/05/16 03:32 Pulse Ox 96 12/05/16 08:30 Weight - Most Recent: 75.296 kg I&O - Last 24 hours: Intake & Output 12/04/16 12/05/16 12/05/16 22:59 06:59 14:59 Output Total 300 400 Balance -300 -400 Med Orders - Current: Current Medications Acetaminophen (Tylenol Extra Strength) 500 mg PO Q4H PRN PRN Reason: Pain Last Admin: 12/05/16 08:20 Dose: 500 mg Acetaminophen (Tylenol Extra Strength) 1,000 mg PO Q4H PRN PRN Reason: Pain Benzocaine/Menthol (Dermoplast Pain Relief 20%-0.5% [place]) 78 gm TOP ASDIRECTED PRN PRN Reason: Perineal Comfort Measure Last Admin: 12/03/16 13:22 Dose: 1 canister Bisacodyl (Dulcolax) 10 mg RECTAL .ONCE PRN PRN Reason: Constipation Docusate Sodium (Colace) 100 mg PO BID PRN PRN Reason: Constipation Last Admin: 12/05/16 08:20 Dose: 100 mg Emollient Ointment (Lansinoh Hpa) 0 gm TOP ASDIRECTED PRN PRN Reason: Sore Nipples Last Admin: 12/03/16 11:33 Dose: 1 applicful Ibuprofen (Motrin) 400 mg PO Q4H PRN PRN Reason: Pain Ibuprofen (Motrin) 800 mg PO Q6H PRN PRN Reason: Pain Last Admin: 12/05/16 11:31 Dose: 800 mg Oxycodone HCl (Oxycodone) 5 mg PO Q2H PRN PRN Reason: Pain Last Admin: 12/05/16 11:31 Dose: 5 mg Witch Mariaelena (Tucks) 1 pad TOP ASDIRECTED PRN PRN Reason: comfort care Last Admin: 12/03/16 13:22 Dose: 1 tub Discontinued Medications Butorphanol Tartrate (Stadol) 1 mg IVPUSH Q1H PRN PRN Reason: Pain Last Admin: 12/03/16 04:11 Dose: 1 mg Carboprost Tromethamine (Hemabate Ds) 250 mcg IM ASDIRECTED PRN PRN Reason: Post Hemorrhage Ephedrine Sulfate (Ephedrine Sulfate) Confirm Administered Dose 50 mg .ROUTE .STK-MED ONE Stop: 12/03/16 05:50 Last Admin: 12/03/16 13:49 Dose: Not Given Fentanyl (Sublimaze) Confirm Administered Dose 300 mcg .ROUTE .STK-MED ONE Stop: 12/03/16 05:50 Last Admin: 12/03/16 13:49 Dose: Not Given Lactated Ringer's (Ringers, Lactated) 1,000 mls @ 150 mls/hr IV ASDIRECTED HU Last Admin: 12/03/16 05:47 Dose: 999 mls/hr Oxytocin/Sodium Chloride (Oxytocin 30 Unit/500 Ml-Ns) 30 unit in 500 mls @ 500 mls/hr IV TITRATE HU Oxytocin/Sodium Chloride (Oxytocin 30 Unit/500 Ml-Ns) 30 unit in 500 mls @ 2 mls/hr IV TITRATE HU; 2 MUNITS/MIN PRN Reason: Protocol Last Titration: 12/03/16 09:20 Dose: 500 munits/min, 500 mls/hr Ropivacaine (Naropin 0.2%) Confirm Administered Dose 100 mls @ as directed .ROUTE .[employer] ONE Stop: 12/03/16 05:51 Last Admin: 12/03/16 13:49 Dose: Not Given Lidocaine HCl (Xylocaine 1%) 50 ml INJECT .ONCE PRN PRN Reason: Laceration repair Methylergonovine Maleate (Methergine) 0.2 mg IM ASDIRECTED PRN PRN Reason: Post Hemorrhage Misoprostol (Cytotec) 200 mcg PO .ONCE PRN PRN Reason: Post Hemorrhage Misoprostol (Cytotec) 25 mcg VAG .ONCE HU Last Admin: 12/02/16 20:53 Dose: 25 mcg Misoprostol (Cytotec) 25 mcg VAG Q4H PRN PRN Reason: Cervical Ripening Misoprostol (Cytotec) 25 mcg PO .ONCE HU Last Admin: 12/02/16 20:53 Dose: 25 mcg Misoprostol (Cytotec) 25 mcg PO Q4H PRN PRN Reason: Cervical Ripening Nalbuphine HCl (Nubain) 10 mg IVPUSH Q1H PRN PRN Reason: Pain (severe 7-10) Ropivacaine (Naropin 0.2%) Confirm Administered Dose 20 ml .ROUTE .[employer] ONE Stop: 12/03/16 05:51 Last Admin: 12/03/16 13:49 Dose: Not Given Sodium Chloride (Saline Flush) 10 ml FLUSH ASDIRECTED PRN PRN Reason: Keep Vein Open Sodium Chloride (Saline Flush) 2.5 ml FLUSH ASDIRECTED PRN PRN Reason: Keep Vein Open Sterile Water (Sterile Water For Irrigation) 1,000 ml IRR ASDIRECTED PRN PRN Reason: delivery Terbutaline Sulfate (Brethine) 0.25 mg SUBCUT ASDIRECTED PRN PRN Reason: Tacysystole - Exam General: Reports: Alert, Oriented HEENT: Reports: Pupils Equal, Pupils Reactive, EOMI, Mucous Membr. Moist/[place] Neck: Reports: Supple Lungs: Reports: Clear to Auscultation, Normal Respiratory Effort Cardiovascular: Reports: Regular Rate, Regular Rhythm GI/Abdominal Exam: Normal Bowel Sounds, Soft, Non-Tender, No Organomegaly, No Distention, No Abnormal Bruit, No Mass, Pelvis Stable (Female) Exam: Normal External Exam, Normal Speculum Exam, Normal Bimanual Exam Rectal (Female) Exam: Normal Exam, Normal Rectal Tone Back Exam: Reports: Normal Inspection, Full Range of Motion Extremities: Normal Inspection, Normal Range of Motion, Non-Tender, No Pedal Edema, Normal Capillary Refill Skin: Reports: Warm, Dry, Intact Wound/Incisions: Reports: Healing Well Neurological: Reports: No New Focal Deficit Psy/Mental Status: Reports: Alert, Normal Affect, Normal Mood *Q Meaningful Use (DIS) - VTE *Q VTE Criteria *Q: - Stroke *Q Stroke Criteria *Q: - AMI *Q AMI Criteria *Q:
--- NOTE | 2016-12-05 13:12 | PCM.CONS ---
H&P History of Present Illness - General Admit Problem/Dx: Patient Status Order with Admit Dx/Problem 12/02/16 19:58 Patient Status [ADT] Routine Admission Diagnosis/Problem Admission Diagnosis/Problem - planned 12/03/16 05:49 31 yo 40 2/7wks EDC 12/01/2016 A+, RI, GBS neg. IOL for post dates Source of Information: Patient History Limitations: Reports: No Limitations - History of Present Illness Initial Comments - Free Text/Narative: Patient is a 31-year-old female who is seen in consult regarding right ankle pain. She is currently a patient on the [facility] floor. She delivered her baby yesterday. Following the epidural, she had significant numbness in her legs. This has been slow to resolve. Yesterday she states she got up and sustained a fall, twisting her right ankle. She felt a snap and complained of immediate pain in the ankle. She denies any other injuries or loss of consciousness. X- rays were obtained which did show a fracture of the right distal fibula. She was placed in a splint. Orthopedic consult was obtained. She has been nonweightbearing. Her pain has been well-controlled. She has no previous history of right ankle injury. Location: Reports: Lower Extremity, Right Quality: Reports: Ache Severity: Mild Improves with: Reports: Immobilization, Rest Worsens with: Reports: Movement Context: Reports: Trauma Associated Symptoms: Reports: No Other Symptoms Right Ankle Pain Score (Numeric/FACES): 6 - Related Data Allergies/Adverse Reactions: Allergies Allergy/AdvReac Type Severity Reaction Status Date / Time citalopram [From Celexa] Allergy Nausea Verified 12/03/16 02:29 hydroxyzine [From Vistaril] Allergy Other Verified 12/03/16 02:28 Home Medications: Home Meds Pnv No.95/Ferrous Fum/Folic AC [ Multivitamin Tablet] 1 each PO DAILY [History] Progesterone Injection 250 mg 08/01/16 [History] buPROPion HCl [Wellbutrin SR] 12/03/16 [History] Past Medical History HEENT History: Reports: Impaired Vision, Other (See Below) Other HEENT History: wears glasses Cardiovascular History: Reports: None Respiratory History: Reports: None Gastrointestinal History: Reports: None Genitourinary History: Reports: None 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: , 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 (See Below) Other OB/BYN History: high risk , hx of delivery with first child, pt taking progesterone injections Neurological History: Reports: None Psychiatric History: Reports: Depression Endocrine/Metabolic History: Reports: None Hematologic History: Reports: None Oncologic (Cancer) History: Reports: None Dermatologic History: Reports: None - Infectious Disease History Infectious Disease History: Reports: None - Past Surgical History HEENT Surgical History: Reports: None Social & Family History - Family History Family Medical History: Noncontributory HEENT: Reports: Cataract, Glaucoma Cardiac: Reports: [place] Respiratory: Reports: Asthma GI: Reports: Other (See Below) Other GI Family History: Crohn's disease; ulcers; cholecystitis OBGYN: Reports: Musculoskeletal: Reports: Arthritis Neurological: Reports: CVA Psychiatric: Reports: Anxiety, Depression Endocrine/Metabolic: Reports: Diabetes, Type I, Other (See Below) Other Endocrine/Metabolic Family History: thyroid disease Oncologic: Reports: Breast, Cervix - Tobacco Use Smoking Status *Q: Never Smoker - Recreational Drug Use Recreational Drug Use: Yes Drug Use in Last 12 Months: Yes Recreational Drug Type: Reports: Marijuana/Hashish, Methamphetamine Recreational Drug Use Frequency: Not Used In Over 6 Months Recreational Drug Last Use: 04/2016 H&P Review of Systems - Review of Systems: Review Of Systems: See Below General: Reports: No Symptoms HEENT: Reports: No Symptoms Pulmonary: Reports: No Symptoms Cardiovascular: Reports: No Symptoms Gastrointestinal: Reports: No Symptoms Genitourinary: Reports: No Symptoms Musculoskeletal: Reports: Leg Pain Skin: Reports: No Symptoms Psychiatric: Reports: No Symptoms Neurological: Reports: Difficulty Walking (secondary to persistent numbness in lower extremities after epidural) Hematologic/Lymphatic: Reports: No Symptoms Immunologic: Reports: No Symptoms Exam - Exam Exam: See Below - Vital Signs Vital Signs: Last Vital Signs Temp 98.0 F 12/05/16 08:30 Pulse 92 12/05/16 08:30 Resp 14 12/05/16 08:30 BP 114/67 12/05/16 03:32 Pulse Ox 96 12/05/16 08:30 Weight: 75.296 kg - Exam HEENT: Conjunctiva Clear, Hearing Intact, Nares Patent Neck: Supple, Trachea Midline, 2 Lungs: Normal Respiratory Effort Cardiovascular: Regular Rate GI/Abdominal Exam: Soft Psychiatric: Alert, Normal Affect, Normal Mood Physical Exam Comments:: Exam of the right lower extremity shows a splint to be in place. She has no pain with gentle rotation of the hip. She has no tenderness around her knee. She complains of patchy paresthesias within the right lower extremity. She is able to move her ankle. Dorsalis pedis pulses 2+. Mild swelling is noted in the dorsum of the foot along with the ankle. - Patient Data Result Diagrams: 12/02/16 20:15 Imaging Impressions Last 24 hrs: X-rays of the right ankle were reviewed. This does show a Carlos B fracture of the right distal fibula. Ankle mortise is intact. Consult PN Assessment/Plan Procedures: Procedures COMPLETE CBC AUTOMATED (08/15/16) CULTURE SCREEN ONLY (10/31/16) DRUG TEST PRSMV DIR OPT OBS (09/12/16) EMERGENCY DEPT VISIT (08/01/16) GLUCOSE TEST (08/15/16) OB US >/= 14 WKS SNGL FETUS (07/17/16) RBC ANTIBODY SCREEN (08/15/16) ROUTINE VENIPUNCTURE (08/15/16) URINALYSIS AUTO W/O SCOPE (11/14/16) (1) Fracture of distal end of right fibula SNOMED Code(s): 374677973 Code(s): S82.831A - OTH FRACTURE OF UPPER AND LOWER END OF RIGHT FIBULA, INIT Current Visit: Yes Qualifiers: Encounter type: initial encounter Fracture type: closed Problem List Initiated/Reviewed/Updated: Yes Plan: 1. CAM walker boot to be placed today 2. continue NWB RLE 3. f/u next week for re-evaluation
== END 2016-12-05 16:10 | disposition home or self-care (01) | DRG 775 ==
LOC: MW.OBCHECK 19:49 → MW.OB 19:53 → MW.OBCHECK 19:58 → MW.OB 19:58 → OBSVTOIN 12-03 09:42 → MW.OB 12-04 17:39
PROVIDERS: ADMIT Obstetrics & Gynecology; ATTEND Obstetrics & Gynecology
PROC: 10D07Z6 Extraction of Products of Conception, Vacuum, Via Natural or Artificial Opening (ICD-10-PCS; principal; 2016-12-03)
PROC: 3E0P3VZ Introduction of Hormone into Female Reproductive, Percutaneous Approach (ICD-10-PCS; 2016-12-03)
PROC: 2W3LX1Z Immobilization of Right Lower Extremity using Splint (ICD-10-PCS; 2016-12-03)
DX: O48.0 Post-term pregnancy (principal); Z3A.40 40 weeks gestation of pregnancy; Z37.0 Single live birth; S82.831A Other fracture of upper and lower end of right fibula, initial encounter for closed fracture; W18.39XA Other fall on same level, initial encounter; Y93.89 Activity, other specified; Y92.230 Patient room in hospital as the place of occurrence of the external cause
CPT/HCPCS: 01967; 36415; 59025; 59409; 73610-26-RT; 73610-RT; 85027; 86850; 86900; 86901; A9270-GY; J0595; J2590; J2795; J3010; J7120

== ENCOUNTER 2019-08-19 10:44 | Inpatient (IN) | payer MEDICAID ==
[2019-08-19] MEDS ORDERED: Succinylcholine/Sod PF 100 MG/5 ML SYRINGE IV ONE (10:58)
[2019-08-19] MEDS ORDERED: Propofol 200 MG/20 ML SDV ONE (10:59)
[2019-08-19] MEDS ORDERED: Midazolam 1 MG/ML 2 ML SDV ONE (11:07)
[2019-08-19] MEDS ORDERED: fentaNYL 250 MCG/5 ML SDV ONE (11:07)
[2019-08-19] MEDS ORDERED: Oxytocin 10 Units/1 ML SDV ONE (11:09)
[2019-08-19] MEDS ORDERED: HYDROmorphone 2 MG/ML Syringe ONE (11:18)
[2019-08-19] MEDS ORDERED: ePHEDrine 50 MG/ML SDV ONE (11:20)
--- NOTE | 2019-08-19 11:34 | PCM.LDHP ---
L&D History of Present Illness - General Date of Service: 08/19/19 Admit Problem/Dx: Patient Status Order with Admit Dx/Problem 08/19/19 10:52 Patient Status [ADT] Routine Admission Diagnosis/Problem Admission Diagnosis/Problem Source of Information: Patient History Limitations: Reports: No Limitations - History of Present Illness Improves with: Reports: None Worsens with: Reports: None Associated Symptoms: Reports: N - Related Data Allergies/Adverse Reactions: Allergies Allergy/AdvReac Type Severity Reaction Status Date / Time No Known Allergies Allergy Verified 08/19/19 10:56 Home Medications: Home Meds Pnv No.95/Ferrous Fum/Folic AC [ Multivitamin Tablet] 1 each PO DAILY 08/01/16 [History] Progesterone Injection 250 mg 08/01/16 [History] buPROPion HCL [Wellbutrin SR] 12/03/16 [History] Past Medical History HEENT History: Reports: Impaired Vision, Other (See Below) Other HEENT History: wears glasses Cardiovascular History: Reports: None Respiratory History: Reports: None Gastrointestinal History: Reports: None Genitourinary History: Reports: None 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: , 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 (See Below) Other OB/BYN History: high risk , hx of delivery with first child, pt taking progesterone injections Neurological History: Reports: None Psychiatric History: Reports: Depression Endocrine/Metabolic History: Reports: None Hematologic History: Reports: None Oncologic (Cancer) History: Reports: None Dermatologic History: Reports: None - Infectious Disease History Infectious Disease History: Reports: None - Past Surgical History HEENT Surgical History: Reports: None Social & Family History - Family History Family Medical History: Noncontributory HEENT: Reports: Cataract, Glaucoma Cardiac: Reports: [place] Respiratory: Reports: Asthma GI: Reports: Other (See Below) Other GI Family History: Crohn's disease; ulcers; cholecystitis OBGYN: Reports: Musculoskeletal: Reports: Arthritis Neurological: Reports: CVA Psychiatric: Reports: Anxiety, Depression Endocrine/Metabolic: Reports: Diabetes, Type I, Other (See Below) Other Endocrine/Metabolic Family History: thyroid disease Oncologic: Reports: Breast, Cervix H&P Review of Systems - Review of Systems: Review Of Systems: See Below General: Reports: No Symptoms HEENT: Reports: No Symptoms Pulmonary: Reports: No Symptoms Cardiovascular: Reports: No Symptoms Gastrointestinal: Reports: No Symptoms Genitourinary: Reports: No Symptoms Musculoskeletal: Reports: No Symptoms Skin: Reports: No Symptoms Psychiatric: Reports: No Symptoms Neurological: Reports: No Symptoms Hematologic/Lymphatic: Reports: No Symptoms Immunologic: Reports: No Symptoms L&D Exam - Exam Exam: See Below - Vital Signs Weight: 80.739 kg - OB Specific Contraction Intensity: Moderate to Strong Movement: Active Heart Tones: Present Presentation: Transverse - Parry Score Parry Score Cervix Position: Anterior Parry Score Consistency: Soft Parry Score Effacement: >80% Parry Score Dilation: > 5 cm Parry Score 's Station: +1, +2 Parry Score Total: 13 - Exam General: Alert, Oriented HEENT: PERRLA, Conjunctiva Clear, EACs Clear, EOMI, Hearing Intact, Mucosa Moist & [place], Nares Patent, Normal Nasal Septum, Posterior Pharynx Clear, TMs Clear Neck: Supple, Trachea Midline Lungs: Clear to Auscultation, Normal Respiratory Effort Cardiovascular: Regular Rate, Regular Rhythm GI/Abdominal Exam: Normal Bowel Sounds, Soft, Non-Tender, No Organomegaly, No Distention, No Abnormal Bruit, No Mass, Pelvis Stable Rectal Exam: Normal Exam, Normal Rectal Tone Genitourinary: Normal external exam, Normal bimanual exam, Normal speculum exam Back Exam: Normal Inspection, Full Range of Motion Extremities: Normal Inspection, Normal Range of Motion, Non-Tender, No Pedal Edema, Normal Capillary Refill Skin: Warm, Dry, Intact Neurological: Cranial Nerves Intact, Reflexes Equal Bilateral Psychiatric: Alert, Normal Affect, Normal Mood - Patient Data Lab Results Last 24 hrs: Laboratory Results - last 24 hr 08/19/19 Range/Units 10:50 COVID-19 (NATALIYA) NEGATIVE (NEGATIVE) Problem List Initiated/Reviewed/Updated: Yes Orders Last 24hrs: Active Orders 24 hr Category Date Time Status Patient Status [ADT] Routine ADT 08/19/19 10:52 Active Non Stress Test [RC] PER UNIT ROUTINE Care 08/19/19 10:52 Active Notify Provider Vital Signs [RC] PRN Care 08/19/19 10:54 Active Procedure Site Prep Instruct [RC] ASDIRECTED Care 08/19/19 10:52 Active Up ad Tati [RC] ASDIRECTED Care 08/19/19 10:52 Active Verify Patient Consent Obtain [RC] ASDIRECTED Care 08/19/19 10:52 Active Vital Signs [RC] PER UNIT ROUTINE Care 08/19/19 10:52 Active CBC W/O DIFF,HEMOGRAM [HEME] Routine Lab 08/19/19 10:52 Ordered RPR (SYPHILIS SERO) W/ RFLX [REF] Routine Lab 08/19/19 10:52 Ordered TYPE AND SCREEN [BBK] Routine Lab 08/19/19 10:52 Ordered Peripheral IV Insertion Adult [OM.PC] Routine Oth 08/19/19 10:52 Ordered Schedule Procedure [COMM] Per Unit Routine Oth 08/19/19 10:52 Ordered Resuscitation Status Routine Resus Stat 08/19/19 10:52 Ordered Assessment/Plan Comment:: IUP 35 wks + transverse lye Funic presentation. Planning emergency C/section.
--- NOTE | 2019-08-19 11:35 | PCM.OPNOTE ---
- General Post-Op/Procedure Note Date of Surgery/Procedure: 08/19/19 Post-Op Diagnosis: Same Anesthesia Technique: General ET Tube Primary Surgeon: Roverto Khan Welfare Adviser: Arianne Pichardo EBL in mLs: 800 Complications: None Condition: Good
[2019-08-19] MEDS ORDERED: Ibuprofen 800 MG Tab PO PRN (11:36)
[2019-08-19] MEDS ORDERED: Lanolin 100% Cream 7 GM Tube TOP PRN (11:36)
[2019-08-19] MEDS ORDERED: Bisacodyl 10 MG Supp RECTAL PRN (11:36)
[2019-08-19] MEDS ORDERED: Methylergonovine 0.2 MG/1 ML Amp IM PRN (11:36)
[2019-08-19] MEDS ORDERED: Acetaminophen/oxyCODONE 325-5 MG Tab PO PRN (11:36)
[2019-08-19] MEDS ORDERED: Tranexamic Acid 1,000 MG in Sodium Chloride 0.9% 100 ML IV PRN (11:36)
[2019-08-19] MEDS ORDERED: diphenhydrAMINE 50 MG/ML SDV IVPUSH PRN (11:36)
[2019-08-19] MEDS ORDERED: Ondansetron 4 MG/2 ML SDV IVPUSH PRN (11:36)
[2019-08-19] MEDS ORDERED: Oxytocin 10 Units/1 ML SDV IM PRN (11:36)
[2019-08-19] MEDS ORDERED: Misoprostol 200 MCG Tab RECTAL PRN (11:36)
[2019-08-19] MEDS ORDERED: Sodium Chloride 0.9% 20 ML ONE (11:37)
[2019-08-19] MEDS ORDERED: ceFAZolin 1 GM Vial ONE (11:37)
--- NOTE | 2019-08-19 11:37 | PCM.PREANE ---
Preanesthetic Assessment - Anesthesia/Transfusion/Family Hx Anesthesia History: Prior Anesthesia Without Reaction (bladder surgery) Family History of Anesthesia Reaction: No Transfusion History: No Prior Transfusion(s) Intubation History: Unknown - Review of Systems General: No Symptoms Pulmonary: No Symptoms Cardiovascular: No Symptoms Gastrointestinal: Abdominal Pain (labor pain) Neurological: No Symptoms Other: Reports: None - Physical Assessment Height: 5 ft 6 in Weight: 80.739 kg ASA Class: 2E Mental Status: Alert & Oriented x3 Airway Class: Mallampati = 1 Dentition: Reports: Dentures (upper and lower) Thyro-Mental Finger Breadths: 3 Mouth Opening Finger Breadths: 3 ROM/Head Extension: Full Lungs: Clear to Auscultation, Normal Respiratory Effort Cardiovascular: Regular Rate, Regular Rhythm - Lab Values: Laboratory Last Values COVID-19 (NATALIYA) NEGATIVE (NEGATIVE) 08/19/19 10:50 - Allergies Allergies/Adverse Reactions: Allergies Allergy/AdvReac Type Severity Reaction Status Date / Time No Known Allergies Allergy Verified 08/19/19 10:56 - Blood Blood Available: No - Anesthesia Plan Pre-Op Medication Ordered: None - Acknowledgements Anesthesia Type Planned: General Anesthesia (rapid sequence) Pt an Appropriate Candidate for the Planned Anesthesia: Yes Alternatives and Risks of Anesthesia Discussed w Pt/Guardian: Yes Pt/Guardian Understands and Agrees with Anesthesia Plan: Yes PreAnesthesia Questionnaire HEENT History: Reports: Impaired Vision, Other (See Below) Other HEENT History: wears glasses Cardiovascular History: Reports: None Respiratory History: Reports: None Gastrointestinal History: Reports: None Genitourinary History: Reports: None 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: , 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 (See Below) Other OB/BYN History: high risk , hx of delivery with first child, pt taking progesterone injections Neurological History: Reports: None Psychiatric History: Reports: Depression Endocrine/Metabolic History: Reports: None Hematologic History: Reports: None Oncologic (Cancer) History: Reports: None Dermatologic History: Reports: None - Infectious Disease History Infectious Disease History: Reports: None - Past Surgical History HEENT Surgical History: Reports: None Female Surgical History: Reports: Other (See Below) (bladder surgery at age 5, no problems) - HOME MEDS Home Medications: Home Meds Pnv No.95/Ferrous Fum/Folic AC [ Multivitamin Tablet] 1 each PO DAILY 08/01/16 [History] Progesterone Injection 250 mg 08/01/16 [History] buPROPion HCL [Wellbutrin SR] 12/03/16 [History] - CURRENT (IN HOUSE) MEDS Current Meds: Current Medications Discontinued Medications Ephedrine Sulfate (Ephedrine Sulfate) Confirm Administered Dose 50 mg .ROUTE .STK-MED ONE Stop: 08/19/19 11:21 Fentanyl (Sublimaze) Confirm Administered Dose 250 mcg .ROUTE .STK-MED ONE Stop: 08/19/19 11:08 Hydromorphone HCl (Dilaudid) Confirm Administered Dose 2 mg .ROUTE .STK-MED ONE Stop: 08/19/19 11:19 Midazolam HCl (Versed 1 Mg/Ml) Confirm Administered Dose 2 mg .ROUTE .STK-MED ONE Stop: 08/19/19 11:08 Oxytocin (Pitocin) Confirm Administered Dose 30 unit .ROUTE .STK-MED ONE Stop: 08/19/19 11:10 Propofol (Diprivan 20 Ml) Confirm Administered Dose 200 mg .ROUTE .STK-MED ONE Stop: 08/19/19 11:00
[2019-08-19] MEDS ORDERED: Lactated Ringers 1,000 ML IV SCH (11:45)
[2019-08-19] MEDS ORDERED: Albuterol 0.083% 2.5 MG/3 ML Neb Soln NEB PRN (11:47)
[2019-08-19] MEDS ORDERED: Atropine 0.1 MG/ML 10 ML Syringe IVPUSH PRN ×2 (11:47)
[2019-08-19] MEDS ORDERED: EPINEPHrine 1:10,000 1 MG/10 ML Syringe IVPUSH PRN (11:47)
[2019-08-19] MEDS ORDERED: Naloxone 0.4 MG/ML Syringe IVPUSH PRN (11:47)
[2019-08-19] MEDS ORDERED: 50% Dextrose in Water 50 ML Syringe IVPUSH PRN (11:47)
[2019-08-19] MEDS ORDERED: fentaNYL 100 MCG/2 ML SDV ONE (11:50)
[2019-08-19] MEDS: fentaNYL 100 MCG/2 ML SDV IVPUSH PRN ×4 (11:51→12:14)
[2019-08-19] MEDS: Ketorolac 30 MG/ML SDV IVPUSH SCH ×3 (11:52→23:45)
--- NOTE | 2019-08-19 12:53 | PCM.POSTAN ---
POST ANESTHESIA ASSESSMENT - MENTAL STATUS Mental Status: Alert, Oriented - VITAL SIGNS Vital Signs: Last Vital Signs Temp 36.3 C 08/19/19 12:30 Pulse 88 08/19/19 12:45 Resp 14 08/19/19 12:45 BP 114/72 08/19/19 12:45 Pulse Ox 96 08/19/19 12:45 - RESPIRATORY Respiratory Status: Respiratory Rate WNL, Airway Patent, O2 Saturation Stable - CARDIOVASCULAR CV Status: Pulse Rate WNL, Blood Pressure Stable - GASTROINTESTINAL GI Status: No Symptoms - PAIN Pain Score: 6 - POST OP HYDRATION Hydration Status: Adequate & Stable - OBSERVATIONS Free Text/Narrative:: No anesthesia problems
--- NOTE | 2019-08-19 13:24 | OR ---
SURGEON: Roverto Khan MD DATE OF PROCEDURE: 08/19/2019 PREOPERATIVE DIAGNOSES: Intrauterine at 35 weeks plus, transverse lie, funic presentation. POSTOPERATIVE DIAGNOSES: Intrauterine at 35 weeks plus, transverse lie, funic presentation. OPERATION PERFORMED: Emergency low transverse section under general anesthesia. PRIMARY SURGEON: Roverto Khan MD WILDLIFE CONSERVATION OFFICER: Arianne Pichardo CNM ANESTHESIA: General, Dr. Barnes and Dom Carlos. ESTIMATED BLOOD LOSS: 800 mL. AMPLIFIER MECHANIC: Shanika Tucker MD INDICATIONS FOR SURGERY: This patient is a patient of ours. She is 35+ weeks. She presented to the [facility] emergency room complaining of hard labor at that time, and she was checked there, and she was 5 to 6 cm with bulging bag of water. The patient placed in an ambulance and transferred to [facility]. At the time of arrival, I was in the Labor and Delivery waiting for the patient, and upon examination in the room, which found her to be complete-complete with a bulging bag of water and a pulsating cord in the bag of the water with funic presentation that was confirmed by a quick ultrasound at the bedside, and then decision was made to do emergency low transverse section under general anesthesia. PROCEDURE IN DETAIL: The patient was brought to the OR, properly identified, and after adequate level of general anesthesia with a Ramires catheter in the bladder, the patient was prepped and draped in sterile fashion as usual. Low transverse Pfannenstiel skin incision was done. Ernestina fascia and rectus fascia were opened in direction of the incision. The 2 recti muscles were and peritoneal cavity was entered. Bladder flap was raised in the usual manner. Low transverse uterine incision extended manually with hand. Presentation was confirmed that the cord was sitting there and it was the presenting part, so that was a funic presentation. However, I went up with my hand in the uterus, and I turned the baby to breech presentation, and I was able to deliver the fetus without any problem, and the fetus was handed to the resuscitating team headed by Dr. Tucker. The score and the weight were not available at this time. The placenta delivered spontaneous, complete, and intact and repair of the lower uterine segment was done with 2-0 Vicryl continuous interlocking. The peritoneum evacuated completely from all blood and blood clot and closed with 3- 0 Vicryl continuous. The rectus fascia was closed with #1 PDS continuous, the Ernestina fascia with 3-0 Vicryl continuous, and the skin closed with 3-0 Vicryl in a subcuticular fashion. Instrument and sponge count was correct. The patient tolerated the procedure well, went to recovery room in stable general condition. ASHELY / MARILYN /[id number]
[2019-08-19] MEDS: Acetaminophen/oxyCODONE 325-5 MG Tab PO PRN ×2 (13:47→19:20)
[2019-08-19] MEDS: Docusate Sodium 100 MG Cap PO SCH (23:45)
[2019-08-20] MEDS: Ketorolac 30 MG/ML SDV IVPUSH SCH ×2 (05:51→11:36)
[2019-08-20] MEDS: Acetaminophen/oxyCODONE 325-5 MG Tab PO PRN ×3 (07:55→22:33)
[2019-08-20] MEDS: Docusate Sodium 100 MG Cap PO SCH (08:04)
--- NOTE | 2019-08-20 09:27 | PCM.SURGPN ---
- General Info Date of Service: 08/20/19 POD#: 1 Functional Status: Reports: Pain Controlled - Review of Systems General: Reports: No Symptoms HEENT: Reports: No Symptoms Pulmonary: Reports: No Symptoms Cardiovascular: Reports: No Symptoms Gastrointestinal: Reports: No Symptoms Genitourinary: Reports: No Symptoms Musculoskeletal: Reports: No Symptoms Skin: Reports: No Symptoms Neurological: Reports: No Symptoms Psychiatric: Reports: No Symptoms - Patient Data Vitals - Most Recent: Last Vital Signs Temp 36.8 C 08/20/19 07:55 Pulse 98 08/20/19 07:55 Resp 20 08/20/19 07:55 BP 108/67 08/20/19 07:55 Pulse Ox 99 08/20/19 07:55 Weight - Most Recent: 80.739 kg I&O - Last 24 Hours: Intake & Output 08/19/19 08/20/19 08/20/19 22:59 06:59 14:59 Output Total 325 1200 Balance -325 -1200 Lab Results Last 24 Hrs: Laboratory Results - last 24 hr 08/19/19 08/19/19 08/19/19 Range/Units 10:50 15:45 15:45 WBC 20.56 H (4.0-11.0) K/uL RBC 3.09 L (4.30-5.90) M/uL Hgb 9.7 L (12.0-16.0) g/dL Hct 28.7 L (36.0-46.0) % MCV 92.9 (80.0-98.0) fL MCH 31.4 (27.0-32.0) pg MCHC 33.8 (31.0-37.0) g/dL RDW Std Deviation 46.2 (28.0-62.0) fl RDW Coeff of Ricardo 14 (11.0-15.0) % Plt Count 196 (150-400) K/uL MPV 10.40 (7.40-12.00) fL Nucleated RBC % 0.0 /100WBC Nucleated RBCs # 0 K/uL COVID-19 (NATALIYA) NEGATIVE (NEGATIVE) Blood Type A POSITIVE Antibody Screen NEGATIVE 08/20/19 Range/Units 05:28 WBC (4.0-11.0) K/uL RBC (4.30-5.90) M/uL Hgb 9.5 L (12.0-16.0) g/dL Hct 28.8 L (36.0-46.0) % MCV (80.0-98.0) fL MCH (27.0-32.0) pg MCHC (31.0-37.0) g/dL RDW Std Deviation (28.0-62.0) fl RDW Coeff of Ricardo (11.0-15.0) % Plt Count (150-400) K/uL MPV (7.40-12.00) fL Nucleated RBC % /100WBC Nucleated RBCs # K/uL COVID-19 (NATALIYA) (NEGATIVE) Blood Type Antibody Screen Med Orders - Current: Current Medications Albuterol (Proventil Neb Soln) 2.5 mg NEB ONETIME PRN PRN Reason: Wheezing Atropine Sulfate (Atropine 0.1 Mg/Ml) 0.5 mg IVPUSH ASDIRECTED PRN PRN Reason: Hypo-perfusion Atropine Sulfate (Atropine 0.1 Mg/Ml) 1 mg IVPUSH ASDIRECTED PRN PRN Reason: Hypo-Perfusion Bisacodyl (Dulcolax) 10 mg RECTAL ONETIME PRN PRN Reason: Constipation Dextrose/Water (Dextrose 50% In Water) 50 ml IVPUSH ASDIRECTED PRN PRN Reason: Hypoglycemia Diphenhydramine HCl (Benadryl) 25 mg IVPUSH Q6H PRN PRN Reason: Itching or Nausea Docusate Sodium (Colace) 100 mg PO BID [facility] Last Admin: 08/20/19 08:04 Dose: 100 mg Documented by: Emollient Ointment (Lansinoh Hpa) 0 gm TOP ASDIRECTED PRN PRN Reason: Sore Nipples Epinephrine HCl (Epinephrine 1:10,000) 1 mg IVPUSH ASDIRECTED PRN PRN Reason: ACLS Guidelines Lactated Ringer's (Ringers, Lactated) 1,000 mls @ 125 mls/hr IV ASDIRECTED [facility] Last Admin: 08/19/19 15:51 Dose: 125 mls/hr Documented by: Tranexamic Acid 1,000 mg/ (Sodium Chloride) 110 mls @ 660 mls/hr IV ONETIME PRN PRN Reason: Bleeding Ibuprofen (Motrin) 800 mg PO Q8H PRN PRN Reason: mild pain or fever Ketorolac Tromethamine (Toradol) 30 mg IVPUSH Q6H HU Stop: 08/20/19 11:46 Last Admin: 08/20/19 05:51 Dose: 30 mg Documented by: Methylergonovine Maleate (Methergine) 0.2 mg IM ONETIME PRN PRN Reason: Excessive Vaginal Bleeding Misoprostol (Cytotec) 1,000 mcg RECTAL ONETIME PRN PRN Reason: excessive bleeding Naloxone HCl (Narcan) 0.1 mg IVPUSH ASDIRECTED PRN PRN Reason: Respiratory Depression Ondansetron HCl (Zofran) 4 mg IVPUSH Q4H PRN PRN Reason: Nausea/Vomiting Oxycodone/Acetaminophen (Percocet 325-5 Mg) 1 tab PO Q4H PRN PRN Reason: Pain (moderate 4-6) Oxycodone/Acetaminophen (Percocet 325-5 Mg) 2 tab PO Q4H PRN PRN Reason: Pain (moderate 4-6) Last Admin: 08/20/19 07:55 Dose: 2 tab Documented by: Oxytocin (Pitocin) 10 unit IM ASDIRECTED PRN PRN Reason: Excessive Vaginal Bleeding Discontinued Medications Cefazolin Sodium (Ancef) Confirm Administered Dose 2 gm .ROUTE .STK-MED ONE Stop: 08/19/19 11:38 Ephedrine Sulfate (Ephedrine Sulfate) Confirm Administered Dose 50 mg .ROUTE .STK-MED ONE Stop: 08/19/19 11:21 Fentanyl (Sublimaze) Confirm Administered Dose 250 mcg .ROUTE .STK-MED ONE Stop: 08/19/19 11:08 Fentanyl (Sublimaze) 50 - 100 mcg IVPUSH Q5M PRN PRN Reason: Pain Last Admin: 08/19/19 12:14 Dose: 50 mcg Documented by: Fentanyl (Sublimaze) Confirm Administered Dose 100 mcg .ROUTE .STK-MED ONE Stop: 08/19/19 11:51 Hydromorphone HCl (Dilaudid) Confirm Administered Dose 2 mg .ROUTE .STK-MED ONE Stop: 08/19/19 11:19 Sodium Chloride (Normal Saline) Confirm Administered Dose 20 mls @ as directed .ROUTE .STK-MED ONE Stop: 08/19/19 11:38 Midazolam HCl (Versed 1 Mg/Ml) Confirm Administered Dose 2 mg .ROUTE .STK-MED ONE Stop: 08/19/19 11:08 Oxytocin (Pitocin) Confirm Administered Dose 30 unit .ROUTE .STK-MED ONE Stop: 08/19/19 11:10 Propofol (Diprivan 20 Ml) Confirm Administered Dose 200 mg .ROUTE .STK-MED ONE Stop: 08/19/19 11:00 - Exam Wound/Incisions: Healing Well General: Alert, Oriented HEENT: Pupils Equal Neck: Supple Lungs: Clear to Auscultation, Normal Respiratory Effort Cardiovascular: Regular Rate, Regular Rhythm GI/Abdominal Exam: Normal Bowel Sounds, Soft, Non-Tender, No Organomegaly, No Distention, No Abnormal Bruit, No Mass, Pelvis Stable Extremities: Normal Inspection, Normal Range of Motion, Non-Tender, No Pedal Edema, Normal Capillary Refill Skin: Warm, Dry, Intact Neurological: No New Focal Deficit Psy/Mental Status: Alert, Normal Affect, Normal Mood Sepsis Event Note - Evaluation Sepsis Screening Result: No Definite Risk - Focused Exam Vital Signs: Vital Signs Temp Pulse Resp BP Pulse Ox 08/20/19 07:55 36.8 C 98 20 108/67 99 08/20/19 06:00 37.2 C 99 18 120/81 94 L Date Exam was Performed: 08/20/19 Time Exam was Performed: 09:25 - Problem List Review Problem List Initiated/Reviewed/Updated: Yes - My Orders Last 24 Hours: Active Orders 24 hr Category Date Time Status Patient Status [ADT] Routine ADT 08/19/19 11:36 Active Ambulate [RC] PER UNIT ROUTINE Care 08/19/19 11:36 Active Antiembolic Devices [RC] PER UNIT ROUTINE Care 08/19/19 11:37 Active Blood Glucose Check, Bedside [RC] PRN Care 08/19/19 11:47 Active Communication Order [RC] PER UNIT ROUTINE Care 08/19/19 11:36 Active May Shower [RC] ASDIRECTED Care 08/19/19 11:36 Active Notify Provider Vital Signs [RC] ASDIRECTED Care 08/19/19 11:47 Active Notify Provider Vital Signs [RC] PRN Care 08/19/19 10:54 Active Oxygen Therapy [RC] PRN Care 08/19/19 11:47 Active RT Incentive Spirometry [RC] Q2HWA Care 08/19/19 11:36 Active Up ad Tati [RC] ASDIRECTED Care 08/19/19 10:52 Active Vital Signs [RC] PER UNIT ROUTINE Care 08/19/19 11:36 Active Regular Diet [DIET] Diet 08/20/19 Breakfast Active RPR (SYPHILIS SERO) W/ RFLX [REF] Routine Lab 08/19/19 15:45 Received Acetaminophen/oxyCODONE [Percocet 325-5 MG] Med 08/19/19 11:36 Active 1 tab PO Q4H PRN Acetaminophen/oxyCODONE [Percocet 325-5 MG] Med 08/19/19 11:36 Active 2 tab PO Q4H PRN Albuterol [Proventil Neb Soln] Med 08/19/19 11:47 Active 2.5 mg NEB ONETIME PRN Atropine [Atropine 0.1 MG/ML] Med 08/19/19 11:47 Active 0.5 mg IVPUSH ASDIRECTED PRN Atropine [Atropine 0.1 MG/ML] Med 08/19/19 11:47 Active 1 mg IVPUSH ASDIRECTED PRN Dextrose 50% in Water Med 08/19/19 11:47 Active 50 ml IVPUSH ASDIRECTED PRN Docusate Sodium [Colace] Med 08/19/19 21:00 Active 100 mg PO BID EPINEPHrine [EPINEPHrine 1:10,000] Med 08/19/19 11:47 Active 1 mg IVPUSH ASDIRECTED PRN Ibuprofen [Motrin] Med 08/19/19 11:36 Active 800 mg PO Q8H PRN Ketorolac [Toradol] Med 08/19/19 11:45 Active 30 mg IVPUSH Q6H Lactated Ringers [Ringers, Lactated] 1,000 ml Med 08/19/19 11:45 Active IV ASDIRECTED Lanolin [Lansinoh HPA] Med 08/19/19 11:36 Active See Dose Instructions TOP ASDIRECTED PRN Methylergonovine [Methergine] Med 08/19/19 11:36 Active 0.2 mg IM ONETIME PRN Naloxone [Narcan] Med 08/19/19 11:47 Active 0.1 mg IVPUSH ASDIRECTED PRN Ondansetron [Zofran] Med 08/19/19 11:36 Active 4 mg IVPUSH Q4H PRN Oxytocin [Pitocin] Med 08/19/19 11:36 Active 10 unit IM ASDIRECTED PRN Tranexamic Acid [Cyklokapron] 1,000 mg Med 08/19/19 11:36 Active Sodium Chloride 0.9% [Normal Saline] 100 ml IV ONETIME bisacodyL [Dulcolax] Med 08/19/19 11:36 Active 10 mg RECTAL ONETIME PRN diphenhydrAMINE [Benadryl] Med 08/19/19 11:36 Active 25 mg IVPUSH Q6H PRN miSOPROStoL [Cytotec] Med 08/19/19 11:36 Active 1,000 mcg RECTAL ONETIME PRN Assess Lochia [WOMSER] Per Unit Routine Ot 08/19/19 11:36 Ordered Assess Uterine Involution [WOMSER] Per Unit Routine Ot 08/19/19 11:36 Ordered Breast Pump [WOMSER] Per Unit Routine Ot 08/19/19 11:36 Ordered Peripheral IV Discontinue [OM.PC] Routine Ot 08/19/19 11:36 Ordered Peripheral IV Insertion Adult [OM.PC] Routine Ot 08/19/19 10:52 Ordered Schedule Procedure [COMM] Per Unit Routine Ot 08/19/19 10:52 Ordered Sequential Compression Device [OM.PC] Per Unit Routine Ot 08/19/19 11:36 Ordered Resuscitation Status Routine Resus Stat 08/19/19 10:52 Ordered Medication Orders Albuterol (Proventil Neb Soln) 2.5 mg NEB ONETIME PRN PRN Reason: Wheezing Atropine Sulfate (Atropine 0.1 Mg/Ml) 0.5 mg IVPUSH ASDIRECTED PRN PRN Reason: Hypo-perfusion Atropine Sulfate (Atropine 0.1 Mg/Ml) 1 mg IVPUSH ASDIRECTED PRN PRN Reason: Hypo-Perfusion Bisacodyl (Dulcolax) 10 mg RECTAL ONETIME PRN PRN Reason: Constipation Dextrose/Water (Dextrose 50% In Water) 50 ml IVPUSH ASDIRECTED PRN PRN Reason: Hypoglycemia Diphenhydramine HCl (Benadryl) 25 mg IVPUSH Q6H PRN PRN Reason: Itching or Nausea Docusate Sodium (Colace) 100 mg PO BID [facility] Admin: 08/20/19 08:04 Dose: 100 mg Documented by: Admin: 08/19/19 23:45 Dose: 100 mg Documented by: MARITO Emollient Ointment (Lansinoh Hpa) 0 gm TOP ASDIRECTED PRN PRN Reason: Sore Nipples Epinephrine HCl (Epinephrine 1:10,000) 1 mg IVPUSH ASDIRECTED PRN PRN Reason: ACLS Guidelines Lactated Ringer's (Ringers, Lactated) 1,000 mls @ 125 mls/hr IV ASDIRECTED [facility] Last Admin: 08/19/19 15:51 Dose: 125 mls/hr Documented by: CHANTELL Tranexamic Acid 1,000 mg/ (Sodium Chloride) 110 mls @ 660 mls/hr IV ONETIME PRN PRN Reason: Bleeding Ibuprofen (Motrin) 800 mg PO Q8H PRN PRN Reason: mild pain or fever Ketorolac Tromethamine (Toradol) 30 mg IVPUSH Q6H [facility] Stop: 08/20/19 11:46 Last Admin: 08/20/19 05:51 Dose: 30 mg Documented by: Admin: 08/19/19 23:45 Dose: 30 mg Documented by: Admin: 08/19/19 18:15 Dose: 30 mg Documented by: Admin: 08/19/19 11:52 Dose: 30 mg Documented by: EMORY Methylergonovine Maleate (Methergine) 0.2 mg IM ONETIME PRN PRN Reason: Excessive Vaginal Bleeding Misoprostol (Cytotec) 1,000 mcg RECTAL ONETIME PRN PRN Reason: excessive bleeding Naloxone HCl (Narcan) 0.1 mg IVPUSH ASDIRECTED PRN PRN Reason: Respiratory Depression Ondansetron HCl (Zofran) 4 mg IVPUSH Q4H PRN PRN Reason: Nausea/Vomiting Oxycodone/Acetaminophen (Percocet 325-5 Mg) 1 tab PO Q4H PRN PRN Reason: Pain (moderate 4-6) Oxycodone/Acetaminophen (Percocet 325-5 Mg) 2 tab PO Q4H PRN PRN Reason: Pain (moderate 4-6) Last Admin: 08/20/19 07:55 Dose: 2 tab Documented by: Admin: 08/19/19 19:20 Dose: 2 tab Documented by: Admin: 08/19/19 13:47 Dose: 2 tab Documented by: CHANTELL Oxytocin (Pitocin) 10 unit IM ASDIRECTED PRN PRN Reason: Excessive Vaginal Bleeding - Assessment Assessment (Free Text/Narrative):: Status post emergency section patient is doing well her pain is reasonably under control had incision is clean and dry she is on regular diet she tolerated very well she is voiding without any problem - Plan Plan (Free Text/Narrative):: We are planning to discharge her home in a.m.
--- NOTE | 2019-08-20 10:15 | PCM48HPAN ---
Post Anesthesia Note - EVALUATION WITHIN 48HRS OF ANESTHETIC Vital Signs in Normal Range: Yes Patient Participated in Evaluation: Yes Respiratory Function Stable: Yes Airway Patent: Yes Cardiovascular Function Stable: Yes Hydration Status Stable: Yes Pain Control Satisfactory: Yes Nausea and Vomiting Control Satisfactory: Yes Mental Status Recovered: Yes Vital Signs: Last Vital Signs Temp 36.8 C 08/20/19 07:55 Pulse 98 08/20/19 07:55 Resp 20 08/20/19 07:55 BP 108/67 08/20/19 07:55 Pulse Ox 99 08/20/19 07:55
[2019-08-20] MEDS ORDERED: Ibuprofen 800 MG Tab PO PRN (18:49)
[2019-08-21] MEDS: Acetaminophen/oxyCODONE 325-5 MG Tab PO PRN ×2 (04:15→07:57)
[2019-08-21] MEDS: Docusate Sodium 100 MG Cap PO SCH ×2 (08:00→08:32)
--- NOTE | 2019-08-21 08:31 | PCM.DCSUM1 ---
Discharge Summary - Hospital Course Diagnosis: Stroke: No - Discharge Data Discharge Date: 08/21/19 Discharge Disposition: Home, Self-Care 01 Condition: Good - Referral to Home Health Primary Care Physician: PCP None - Patient Instructions Diet: Usual Diet as Tolerated Activity: As Tolerated Driving: Do Not Drive Showering/Bathing: May Shower - Discharge Plan Home Medications: Home Meds Pnv No.95/Ferrous Fum/Folic AC [ Multivitamin Tablet] 1 each PO DAILY 08/01/16 [History] Progesterone Injection 250 mg 08/01/16 [History] buPROPion HCL [Wellbutrin SR] 12/03/16 [History] Referrals: [facility] [Outside] Roverto Khan MD [Physician] - 09/30/19 3:00 pm Arianne Pichardo CNM [Mid-] - 08/26/19 1:30 pm - Discharge Summary/Plan Comment DC Time >30 min.: Yes - General Info Date of Service: 08/21/19 Functional Status: Reports: Pain Controlled - Review of Systems General: Reports: No Symptoms HEENT: Reports: No Symptoms Pulmonary: Reports: No Symptoms Cardiovascular: Reports: No Symptoms Gastrointestinal: Reports: No Symptoms Genitourinary: Reports: No Symptoms Musculoskeletal: Reports: No Symptoms Skin: Reports: No Symptoms Neurological: Reports: No Symptoms Psychiatric: Reports: No Symptoms - Patient Data Vitals - Most Recent: Last Vital Signs Temp 36.7 C 08/21/19 04:30 Pulse 92 08/21/19 04:30 Resp 18 08/21/19 04:30 BP 136/76 08/21/19 04:30 Pulse Ox 94 L 08/21/19 04:30 Weight - Most Recent: 80.739 kg I&O - Last 24 hours: Intake & Output 08/20/19 08/21/19 08/21/19 22:59 06:59 14:59 Output Total 150 Balance -150 Med Orders - Current: Current Medications Albuterol (Proventil Neb Soln) 2.5 mg NEB ONETIME PRN PRN Reason: Wheezing Atropine Sulfate (Atropine 0.1 Mg/Ml) 0.5 mg IVPUSH ASDIRECTED PRN PRN Reason: Hypo-perfusion Atropine Sulfate (Atropine 0.1 Mg/Ml) 1 mg IVPUSH ASDIRECTED PRN PRN Reason: Hypo-Perfusion Bisacodyl (Dulcolax) 10 mg RECTAL ONETIME PRN PRN Reason: Constipation Dextrose/Water (Dextrose 50% In Water) 50 ml IVPUSH ASDIRECTED PRN PRN Reason: Hypoglycemia Diphenhydramine HCl (Benadryl) 25 mg IVPUSH Q6H PRN PRN Reason: Itching or Nausea Docusate Sodium (Colace) 100 mg PO BID [facility] Last Admin: 08/21/19 08:00 Dose: 100 mg Documented by: Emollient Ointment (Lansinoh Hpa) 0 gm TOP ASDIRECTED PRN PRN Reason: Sore Nipples Epinephrine HCl (Epinephrine 1:10,000) 1 mg IVPUSH ASDIRECTED PRN PRN Reason: ACLS Guidelines Lactated Ringer's (Ringers, Lactated) 1,000 mls @ 125 mls/hr IV ASDIRECTED [facility] Last Admin: 08/19/19 15:51 Dose: 125 mls/hr Documented by: Tranexamic Acid 1,000 mg/ (Sodium Chloride) 110 mls @ 660 mls/hr IV ONETIME PRN PRN Reason: Bleeding Ibuprofen (Motrin) 800 mg PO Q6H PRN PRN Reason: mild pain or fever Methylergonovine Maleate (Methergine) 0.2 mg IM ONETIME PRN PRN Reason: Excessive Vaginal Bleeding Misoprostol (Cytotec) 1,000 mcg RECTAL ONETIME PRN PRN Reason: excessive bleeding Naloxone HCl (Narcan) 0.1 mg IVPUSH ASDIRECTED PRN PRN Reason: Respiratory Depression Ondansetron HCl (Zofran) 4 mg IVPUSH Q4H PRN PRN Reason: Nausea/Vomiting Oxycodone/Acetaminophen (Percocet 325-5 Mg) 2 tab PO Q4H PRN PRN Reason: Pain (moderate 4-6) Last Admin: 08/20/19 19:24 Dose: 2 tab Documented by: Oxycodone/Acetaminophen (Percocet 325-5 Mg) 1 tab PO Q3H PRN PRN Reason: Pain (moderate 4-6) Last Admin: 08/21/19 07:57 Dose: 1 tab Documented by: Oxytocin (Pitocin) 10 unit IM ASDIRECTED PRN PRN Reason: Excessive Vaginal Bleeding Discontinued Medications Cefazolin Sodium (Ancef) Confirm Administered Dose 2 gm .ROUTE .STK-MED ONE Stop: 08/19/19 11:38 Ephedrine Sulfate (Ephedrine Sulfate) Confirm Administered Dose 50 mg .ROUTE .STK-MED ONE Stop: 08/19/19 11:21 Fentanyl (Sublimaze) Confirm Administered Dose 250 mcg .ROUTE .STK-MED ONE Stop: 08/19/19 11:08 Fentanyl (Sublimaze) 50 - 100 mcg IVPUSH Q5M PRN PRN Reason: Pain Last Admin: 08/19/19 12:14 Dose: 50 mcg Documented by: Fentanyl (Sublimaze) Confirm Administered Dose 100 mcg .ROUTE .STK-MED ONE Stop: 08/19/19 11:51 Hydromorphone HCl (Dilaudid) Confirm Administered Dose 2 mg .ROUTE .STK-MED ONE Stop: 08/19/19 11:19 Sodium Chloride (Normal Saline) Confirm Administered Dose 20 mls @ as directed .ROUTE .STK-MED ONE Stop: 08/19/19 11:38 Ibuprofen (Motrin) 800 mg PO Q8H PRN PRN Reason: mild pain or fever Last Admin: 08/20/19 18:00 Dose: 800 mg Documented by: Ketorolac Tromethamine (Toradol) 30 mg IVPUSH Q6H [facility] Stop: 08/20/19 11:46 Last Admin: 08/20/19 11:36 Dose: 30 mg Documented by: Midazolam HCl (Versed 1 Mg/Ml) Confirm Administered Dose 2 mg .ROUTE .STK-MED ONE Stop: 08/19/19 11:08 Oxycodone/Acetaminophen (Percocet 325-5 Mg) 1 tab PO Q4H PRN PRN Reason: Pain (moderate 4-6) Last Admin: 08/20/19 14:29 Dose: 1 tab Documented by: Oxytocin (Pitocin) Confirm Administered Dose 30 unit .ROUTE .STK-MED ONE Stop: 08/19/19 11:10 Propofol (Diprivan 20 Ml) Confirm Administered Dose 200 mg .ROUTE .STK-MED ONE Stop: 08/19/19 11:00 - Exam General: Reports: Alert, Oriented HEENT: Reports: Pupils Equal, Pupils Reactive, EOMI, Mucous Membr. Moist/[place] Neck: Reports: Supple Lungs: Reports: Clear to Auscultation, Normal Respiratory Effort Cardiovascular: Reports: Regular Rate, Regular Rhythm GI/Abdominal Exam: Normal Bowel Sounds, Soft, Non-Tender, No Organomegaly, No Distention, No Abnormal Bruit, No Mass, Pelvis Stable (Female) Exam: Normal External Exam, Normal Speculum Exam, Normal Bimanual Exam Rectal (Female) Exam: Normal Exam, Normal Rectal Tone Back Exam: Reports: Normal Inspection, Full Range of Motion Extremities: Normal Inspection, Normal Range of Motion, Non-Tender, No Pedal Edema, Normal Capillary Refill Skin: Reports: Warm, Dry, Intact Wound/Incisions: Reports: Healing Well Neurological: Reports: No New Focal Deficit Psy/Mental Status: Reports: Alert, Normal Affect, Normal Mood
[2019-08-21 10:16] VITALS: BP 123/75; PULSE 92
== END 2019-08-21 10:10 | disposition home or self-care (01) | DRG 788 ==
LOC: MW.OB 10:44 → OBSVTOIN 10:52 → MW.OB 16:08
PROVIDERS: ADMIT Obstetrics & Gynecology; ATTEND Obstetrics & Gynecology
PROC: 10D00Z1 Extraction of Products of Conception, Low, Open Approach (ICD-10-PCS; principal; 2019-08-19)
DX: O32.2XX0 Maternal care for transverse and oblique lie, not applicable or unspecified (principal); Z37.0 Single live birth; Z3A.35 35 weeks gestation of pregnancy; Z11.59 Encounter for screening for other viral diseases
CPT/HCPCS: 36415; 51702; 59025; 85014; 85018; 85027; 86592; 86593; 86780; 86850; 86900; 86901; A9270-GY; J0330; J0690; J1170; J1885; J2250; J2590; J2704; J3010; J7120; U0002